=== PATIENT | female | born 1965 | race Caucasian/White ===

== ENCOUNTER → 2020-06-14 10:23 | Outpatient (POV) | payer BC, SELFPAY | PROVIDERS: Visit Provider Dermatology | DX: Z00.00 Encounter for general adult medical examination without abnormal findings (principal) ==

== ENCOUNTER → 2020-09-22 13:51 | Outpatient (CLI) | payer BC, SELFPAY ==
--- NOTE | 2020-09-22 13:51 | US_ITS ---
PROCEDURE: US TRANSVAGINAL CLINICAL INDICATION: pelvic pain COMPARISON: No exams were available for comparison FINDINGS: UTERUS: 10cm x 5cmx 5cm with a combined endometrial thickness of 16.6mm LEFT OVARY: [id number] with a volume of 4.2ml. RIGHT OVARY: [id number] with a volume of 7.4ml. There is a 2 cm simple appearing right ovarian cyst. There are multiple nabothian cysts. Largest nabothian cyst measures 1.7 cm. The endometrium is thickened at 17 mm. No cul-de-sac fluid IMPRESSION: Slightly bulky uterus with thickened endometrium and 2 cm simple appearing right ovarian cyst Dictated by: Mikey Huggins MD 09/23/2020 11:55 Mikey Huggins MD in OV 09/23/2020 11:55
== END ==
PROVIDERS: PCP Emergency Medicine; Visit Provider Obstetrics & Gynecology
DX: R10.2 Pelvic and perineal pain (principal)
CPT/HCPCS: 76830

== ENCOUNTER 2021-08-21 13:19 | Emergency (ER) | payer BC, SELFPAY ==
[2021-08-21 13:25] VITALS: BP 127/84; PULSE 73; RESP 18; O2SAT 96; BMI 36.3
--- NOTE | 2021-08-21 13:42 | HMH.EDFALL ---
ED Disposition Clinical Impression: Abrasion Contusion of face Qualifiers: Encounter type: initial encounter Qualified Code(s): S00.83XA - Contusion of other part of head, initial encounter Disposition: Home, Self-Care Condition on Discharge: Fair Additional Instructions: Echo [id number] Tylenol as needed for your pain. Follow-up with your primary care doctor in about 3 days to have your wounds checked. Return to the emergency department immediately if you feel worse in any way. Your CAT scan today did not show any acute injuries. Referrals: Leroy Salinas MD [Primary Care Provider] - - Critical Care Critical Care Time: No Attestation: On 08/21/21, the high probability of a clinically significant, sudden or life threatening deterioration of the following system(s) required my full and direct attention, intervention and personal management. The time I documented below is in addition to time spent performing reported procedures but includes the following listed in this critical care notation. Medical Decision Making - Josh Inquiry Pt receiving controlled substance: No Vital Signs: 08/21/21 13:25 08/21/21 14:01 Pulse Rate 58 L Pulse Rate [Brachial] 73 Respiratory Rate 18 18 Blood Pressure 106/60 L Blood Pressure [Right Arm] 127/84 Blood Pressure Mean [Right Arm] 98 Blood Pressure Source Automatic Cuff Blood Pressure Source [Right Arm] Automatic Cuff Blood Pressure Position Sitting 02 Sat by Pulse Oximetry 96 94 L Oxygen Delivery Method Room Air Room Air Orders (Tests/Meds): ED MEDICATIONS Discontinued Medications Generic Name Dose Route Start Last Admin Trade Name Freq PRN Reason Stop Dose Admin Tetanus/Reduced Diphtheria/Acell Pertussis 0.5 ml 08/21/21 13:44 08/21/21 14:17 Tet/Diphth/Pert-Adult 0.5ml Syringe IM 08/21/21 13:45 0.5 ml .ONCE ONE Administration - CT Data CT Scan: Head Time Received: 14:[address] Reviewed: Yes: I have reviewed the patient's CT results Preliminary Findings: Normal/NAD Fall HPI - General Chief Complaint: Fall Stated Complaint: fall Time Seen by Provider: 08/21/21 13:42 Mode of Arrival: EMS Limitations: aphasia Description of Symptoms (Recalled from ER Triage Doc. by RN): PT BROUGHT IN BY EMS FOR A FALL WHILE AT ASSISTED LIVING HOME. PT REPORTS TRIPPING WHILE GETTING OUT OF LAWN CHAIR. HAS RIGHT SIDED DEFECIT AND UNABLE TO CATCH HERSELF. ABRASION TO CHIN, LEFT CHEEK, LEFT SHOULDER AND LEFT KNEE. PT DENIES PAIN, NO LOC, DID NOT HIT HER HEAD - History of Present Illness HPI Narrative: The patient fell after having stumbled over a lawn chair. She sustained an injury to her left shoulder and face. She denies having lost consciousness. - Related Data Home Medications Medication Instructions Recorded Confirmed acetaminophen 500 mg capsule 500 mg PO Q6H PRN 09/02/20 01/04/21 amlodipine 10 mg tablet 10 mg PO HS tab 09/02/20 01/04/21 atorvastatin 10 mg tablet 10 mg PO DAILY 09/02/20 01/04/21 citalopram 20 mg tablet 20 mg PO DAILY 09/02/20 01/04/21 clobetasol 0.05 % topical ointment 1 applic TOPICAL BID 09/02/20 01/04/21 cyanocobalamin (vitamin B-12) 1,000 mcg PO DAILY 09/02/20 01/04/21 1,000 mcg capsule donepezil 5 mg tablet 5 mg PO HS 09/02/20 01/04/21 fenofibrate 54 mg tablet 54 mg PO DAILY 09/02/20 01/04/21 hydroxyzine HCl 25 mg tablet 25 mg PO BID PRN 09/02/20 01/04/21 lisinopril 40 mg tablet 40 mg PO DAILY 09/02/20 01/04/21 loratadine 10 mg tablet 10 mg PO DAILY 09/02/20 01/04/21 mirtazapine 15 mg tablet 15 mg PO HS 09/02/20 01/04/21 omega-3 fatty acids 1,000 mg 1,000 mg PO BID 09/02/20 01/04/21 capsule oxcarbazepine 600 mg tablet 600 mg PO BID 09/02/20 01/04/21 Previous Rx's Medication Instructions Recorded medroxyprogesterone 10 mg tablet See Rx Instructions .ROUTE 10/28/20 .COMPLEX #40 tab gabapentin 300 mg capsule 300 mg PO TID #90 cap 03/15/21 Allergies Allergy/AdvReac Type Severity Reacti
--- NOTE | 2021-08-21 13:44 | CT_ITS ---
PROCEDURE INFORMATION: Exam: CT Head Without Contrast Exam date and time: 08/21/2021 1:51 PM Age: 56 years old Clinical indication: Injury or trauma; Fall; Blunt trauma (contusions or hematomas); Consciousness not specified; Injury date: 08/21/21; Prior surgery; Surgery date: 6+ months; Surgery type: 13 years ago; Additional info: Chi-- previous traumatic brain injury -- this fall she has abrasions on chin and forehead TECHNIQUE: Imaging protocol: Computed tomography of the head without contrast. Radiation optimization: All CT scans at this facility use at least one of these dose optimization techniques: automated exposure control; mA and/or kV adjustment per patient size (includes targeted exams where dose is matched to clinical indication); or iterative reconstruction. COMPARISON: No relevant prior studies available. FINDINGS: Brain: Periventricular and subcortical white matter areas of hypoattenuation, likely chronic small vessel ischemic change, demyelination, or gliosis. Left frontotemporal encephalomalacia. Minimal encephalomalacia within the right frontal lobe. No intracranial mass, acute hemorrhage, or acute infarction. Cerebral ventricles: No ventriculomegaly. Paranasal sinuses: Visualized sinuses are unremarkable. No fluid levels. Mastoid air cells: Fluid within the right mastoid air cells. Auditory system: Small amount of fluid within the right middle ear. Bones/joints: Changes of prior left frontal parietal craniectomy. Soft tissues: Unremarkable. IMPRESSION: No acute intracranial abnormality.
--- NOTE | 2021-08-21 13:55 | PC.NURSE ---
PT TO CT PER WHEELCHAIR
[2021-08-21 14:01] VITALS: BP 106/60; PULSE 58; RESP 18; O2SAT 94
[2021-08-21 14:30] VITALS: BP 123/65; PULSE 64; RESP 20; TEMP 36.7
--- NOTE | 2021-08-21 14:41 | PC.NURSE ---
contacted [facility], notified staff member pt is ready for d/c
== END 2021-08-21 14:30 | disposition home or self-care (01) ==
PROVIDERS: Emergency Provider Emergency Medicine; PCP Emergency Medicine
DX: S00.83XA Contusion of other part of head, initial encounter (principal); S00.81XA Abrasion of other part of head, initial encounter; S40.212A Abrasion of left shoulder, initial encounter; S80.212A Abrasion, left knee, initial encounter; W07.XXXA Fall from chair, initial encounter; Y92.099 Unspecified place in other non-institutional residence as the place of occurrence of the external cause; Z23 Encounter for immunization
CPT/HCPCS: 70450; 90471; 90715; 99284

== ENCOUNTER → 2021-10-31 12:11 | Outpatient (CLI) | payer BC, SELFPAY ==
[2021-10-31 13:33] LABS: Basophils # 0.1 K/mm3 (0-0.2); Basophils % 0.6 % (0.1-2.0); Eosinophils # 0.4 K/mm3 (0.0-0.4); Eosinophils % 5.2 % (0.1-12.0); Hematocrit 41.2 % (37.0-47.0); Hemoglobin 13.4 g/dL (12.2-16.2); Lymphocytes # 1.8 K/mm3 (0.7-4.5); Lymphocytes % 23.4 % (10-50); Mean Corpuscular HGB Conc 32.5 g/dL (31.8-35.4); Mean Corpuscular Hemoglobin 31.1 pg (27.0-31.2); Mean Corpuscular Volume 95.9 fl (81-99); Mean Platelet Volume 7.6 fl (7.4-10.4); Monocytes # 0.3 K/mm3 (0.1-1.0); Monocytes % 3.9 % (1.7-9.3); Neutrophils # 5.2 K/mm3 (1.8-7.8); Neutrophils % 66.8 % (37.0-80.0); Platelet Count 395 K/mm3 (142-424); Red Cell Distribution Width 13.3 % (11.5-17.5); White Blood Count 7.7 K/mm3 (4.8-10.8)
[2021-10-31 14:12] LABS: Alanine Aminotransferase 17 U/L (12-78); Albumin Level 4.1 g/dl (3.5-5.0); Albumin/Globulin Ratio 1.6 (1.1-1.8); Alkaline Phosphatase 87 U/L (38-126); Anion Gap 14.5 mEq/L (5-15); Aspartate Amino Transferase 22 U/L (14-36); Bilirubin,Total < 0.1 mg/dl (0.2-1.3); Blood Urea Nitrogen 12 mg/dl (7-17); Calcium 9.1 mg/dl (8.4-10.2); Carbon Dioxide 26 mmol/L (22.0-30.0); Chloride 99 mmol/L (98-107); Estimated Glomerular Filt Rate 65 ml/min (>60); GFR (African American) 79 ML/MIN (>60); Globulin 2.5 g/dL (1.3-3.2); Glucose 88 mg/dl (74-100); Potassium 4.5 mmoL/L (3.5-5.1); Sodium 135 mmol/L (136-145); Total Protein,Serum 6.6 g/dl (6.3-8.2)
== END ==
PROVIDERS: PCP Emergency Medicine; Visit Provider Obstetrics & Gynecology
DX: Z01.812 Encounter for preprocedural laboratory examination (principal); Z20.822 Contact with and (suspected) exposure to COVID-19; N93.9 Abnormal uterine and vaginal bleeding, unspecified
CPT/HCPCS: 36415; 80053; 85025; C9803; U0003; U0005

== ENCOUNTER 2021-11-02 05:56 | Day surgery (SDC) | payer BC, SELFPAY ==
[2021-11-02] VITALS (9 sets, daily range): BP systolic 138–160; BP diastolic 60–88; PULSE 57–68; RESP 16–18; TEMP 36.2–36.9; O2SAT 92–98; BMI 35.5
--- NOTE | 2021-11-02 09:17 | PC.NURSE ---
[id number]-detailed report called to ROLAND Dempsey [id number]-pt transported to post op via stretcher w/gopi rails up and left in care of ROLAND Dempsey with bed locked in lowest position, vss, pt stable
--- NOTE | 2021-11-02 11:01 | EXP.OP.NOTE ---
Date of procedure: 11/02/21 Pre-op Diagnosis:: 1. Dysfunctional uterine bleeding 2. Thickened endometrium Post-op Diagnosis:: Same Procedure performed:: Myosure D&C Hysteroscopy Surgeon:: Sary Hernandez MD CREDIT SUPPORT COUNSELOR:: Other Anesthesia: GETA Estimated blood loss (mL): 5 Operative findings:: thickened proliferative endometrial tissue no polyp or fibroid visualized Operative note:: The patient was taken to the OR and general anesthesia administered without difficulty. She was prepped/draped in lithotomy position. The cervix was dilated and hysteroscopic evaluation performed. Thickened, proliferative glandular tissue was observed throughout the cavity but no fibroids or polyps were visualized within the endometrial cavity. The Myosure was used to sample endometrial tissue throughout the cavity. Once this was completed, all instruments were removed from her uterus and vagina. She was taken out of lithotomy position, awakened from anesthesia and taken to the PACU in stable condition. All sponge, needle & instrument counts correct. EBL 5cc. Condition: stable Disposition: PACU Specimens:: endometrial curettings Complications:: none
--- NOTE | 2021-11-02 14:07 | P.PN_ITS ---
[facility] Medical History (Updated 11/02/21 @ 07:08 by Janine Quesada RN) Chronic pain Dementia Depression History of contracture of joint History of intracranial injury History of stroke Hx of cerebrovascular disorder Hyperlipidemia Hypertension Psoriasis Seizures TBI (traumatic brain injury) Surgical History (Updated 11/02/21 @ 06:45 by Janine Quesada RN) History of knee replacement History of surgery of head Family History (Updated 11/02/21 @ 06:49 by Janine Quesada RN) Other No significant family history Social History Smoking Status: Never smoker alcohol intake: never substance use type: denies use current occupational status: disabled Travel in the last 8 weeks: None [facility] Anesthesia Checklist Patient Identification Patient Identification: Arm Band Structural Data Planned Operative Procedure/s: D & C, Hysteroscopy, Myasure Consent for Planned Operative Procedure(s) Verified: Yes Verified Documents: Surgical Consent NPO Status Verified Time NPO: 00:00 Additional verifications Anesthesia Reactions: No Hx Blood Transfusions: No Blood Transfusion Reaction: No Cardiovascular Assessment Heart Sounds: S1 & S2 Airway Assessment C-Spine Mobility Assessed: Yes TMJ Mobility Assessed: Yes Dentition: Edentulous Neurological Assessment Level of Consciousness: Awake, Follows Commands and Disoriented Hx Seizures: Yes Numbness or tingling in extremities: No Anesthesia Plan Anesthesia Risk discussed: Yes Anesthesia Plan: Verified ASA Class: III Anesthesia Type: General Preoperative Comments Pre-Operative Comments: Right arm contractures, Hypertension, History of seizures, CVD, Anxiety, Difficult for patient to communicate.
--- NOTE | 2021-11-02 14:21 | EXP.ANES.I ---
[facility] Anesthesia Record Part I Anesthesia Record I Intake, IV Amount: 200 Estimated blood loss (mL): 0 Urine output (mL): 0 Blood Products used (#): none Blood Pressure: 159/88 SaO2: 92 Pulse Rate: 63 Respiratory Rate: 16 Temperature: 98.1 F Patient is:: Drowsy and Stable
--- NOTE | 2021-11-03 09:03 | P.PNANES_ITS ---
[facility] Anesthesia Record Part II Anesthesia Record Part II Discharge Time: 09:11 Destination: Surgical Day Care (OP Surgery) PACU nurse assessment reviewed?: Yes Patient Condition:: Good Anesthesia Complications:: None Swallowing reflex intact?: Yes Cyanosis?: No Blood Pressure: 143/60 Pulse Rate: 60 Temperature: 98.5 F Mental Status: Alert & Oriented Pain level:: 0 Nausea and/or vomitting:: None Intake, IV Amount: 0
[2021-11-03 09:04] VITALS: BP 143/60; PULSE 60; TEMP 36.9
== END 2021-11-02 09:50 | disposition home or self-care (01) ==
PROVIDERS: PCP Emergency Medicine; Visit Provider Obstetrics & Gynecology
PROC: (CPT 58558; principal; 2021-11-02 07:30)
DX: N93.8 Other specified abnormal uterine and vaginal bleeding (principal); R93.89 Abnormal findings on diagnostic imaging of other specified body structures; Z79.899 Other long term (current) drug therapy
CPT/HCPCS: 58558; J2405

== ENCOUNTER 2022-11-07 21:34 | Emergency (ER) | payer BC, SELFPAY ==
[2022-11-07] VITALS (7 sets, daily range): BP systolic 151–232; BP diastolic 64–91; PULSE 50–64; RESP 16–20; TEMP 36.4; O2SAT 96–98; BMI 35.6
--- NOTE | 2022-11-07 22:08 | XR_ITS ---
PROCEDURE INFORMATION: Exam: XR Right Ankle Exam date and time: 11/07/2022 10:27 PM Age: 57 years old Clinical indication: Injury or trauma; Fall; Blunt trauma; Ankle; Right; Injury date: 11-07-22 TECHNIQUE: Imaging protocol: Radiologic exam of the right ankle. Views: 3 or more views. COMPARISON: No relevant prior studies available. FINDINGS: Bones/joints: Fracture dislocation at the ankle. Displaced transverse fracture of the medial malleolus. Mildly displaced oblique fracture of the posterior malleolus. Comminuted oblique fracture of the distal fibular diaphysis. Lateral subluxation of the talus and distal fibula by approximately half the shaft width of the tibia. Soft tissues: Diffuse soft tissue swelling. IMPRESSION: Fracture dislocation at the ankle with medial and posterior malleolar fractures and a distal fibular diaphyseal fracture. Lateral subluxation of the talus and distal fibula by approximately half the shaft width of the tibia.
--- NOTE | 2022-11-07 22:08 | XR_ITS ---
PROCEDURE INFORMATION: Exam: XR Right Foot Exam date and time: 11/07/2022 10:27 PM Age: 57 years old Clinical indication: Injury or trauma; Fall; Blunt trauma; Foot; Right; Injury date: 11-07-22 TECHNIQUE: Imaging protocol: Radiologic exam of the right foot. Views: 3 or more views. COMPARISON: No relevant prior studies available. FINDINGS: Bones/joints: Fracture dislocation at the ankle. No fracture or dislocation in the foot. Hallux valgus with bunion formation at the medial head of the 1st metatarsal. New line ankle soft tissue swelling extends into the foot. Soft tissues: See Bones/joints finding. IMPRESSION: 1. No fracture in the foot. 2. Fracture dislocation at the ankle. 3. Hallux valgus.
--- NOTE | 2022-11-07 22:08 | XR_ITS ---
PROCEDURE INFORMATION: Exam: XR Right Tibia and Fibula Exam date and time: 11/07/2022 10:27 PM Age: 57 years old Clinical indication: Injury or trauma; Fall; Blunt trauma; Lower leg; Right; Injury date: 11-07-22 TECHNIQUE: Imaging protocol: Radiologic exam of the right tibia and fibula. Views: 2 views. COMPARISON: No relevant prior studies available. FINDINGS: Bones/joints: Fracture dislocation at the ankle with a displaced transverse fracture of the medial malleolus and oblique fracture of the posterior malleolus. Comminuted oblique fracture of the distal fibular diaphysis. The talus and distal fibula are shifted laterally approximately half the shaft width of the tibia. No other fracture. Soft tissues: Ankle soft tissue swelling. IMPRESSION: Fracture/dislocation at the ankle involving the medial and posterior malleoli and distal fibular diaphysis with shift of the talus and distal fibula laterally a half shaft width of the tibia.
--- NOTE | 2022-11-07 22:28 | CT_ITS ---
PROCEDURE INFORMATION: Exam: CT Right Lower Extremity Without Contrast, Ankle Exam date and time: 11/07/2022 11:37 PM Age: 57 years old Clinical indication: Abnormal findings; Abnormal imaging study; XR ankle; Patient HX: Post reduction; Additional info: David TECHNIQUE: Imaging protocol: CT of the right lower extremity without contrast was performed. Exam focused on the ankle. 3D rendering (Not supervised by radiologist): MIP and/or 3D reconstructed images were created by the technologist. Radiation optimization: All CT scans at this facility use at least one of these dose optimization techniques: automated exposure control; mA and/or kV adjustment per patient size (includes targeted exams where dose is matched to clinical indication); or iterative reconstruction. REPORTING DATA: Count of CT and Cardiac NM exams in prior 12 months: This patient has received 0 known CTs and 0 known cardiac nuclear medicine studies in the 12 months prior to the current study. COMPARISON: CR XR ANKLE RT 2V 11/07/2022 11:35 PM FINDINGS: Bones/joints: Mildly displaced transverse fracture of the medial malleolus. Mildly displaced oblique fracture of the posterior malleolus. Mildly displaced and comminuted fracture of the distal fibular diaphysis. Small avulsion fracture at the posterior talus at the insertion site of the posterior talofibular ligament. Small avulsion fractures anteriorly within the anterior talofibular ligament and anterior distal tibiofibular ligament. The ankle mortise is in anatomic alignment. Soft tissues: Diffuse soft tissue swelling. IMPRESSION: 1. Mildly displaced transverse fracture of the medial malleolus. 2. Mildly displaced oblique fracture of the posterior malleolus. 3. Mildly displaced and comminuted fracture of the distal fibular diaphysis. 4. Small avulsion fractures in the expected locations of the anterior and posterior talofibular ligament and anterior distal tibiofibular ligament.
[2022-11-07 23:01] LABS: Alanine Aminotransferase 26 U/L (12-78); Albumin Level 4.4 g/dl (3.5-5.0); Albumin/Globulin Ratio 1.7 (1.1-1.8); Alkaline Phosphatase 79 U/L (38-126); Anion Gap 12.4 mEq/L (5-15); Aspartate Amino Transferase 30 U/L (14-36); Bilirubin,Total 0.3 mg/dl (0.2-1.3); Blood Urea Nitrogen 11 mg/dl (7-17); Calcium 8.9 mg/dl (8.4-10.2); Carbon Dioxide 26 mmol/L (22.0-30.0); Chloride 96 mmol/L (98-107); Creatinine Clearance Estimated 118 mL/min (50-200); Estimated Glomerular Filt Rate 65 ml/min (>60); GFR (African American) 79 ML/MIN (>60); Globulin 2.6 g/dL (1.3-3.2); Glucose 142 mg/dl (74-100); Potassium 3.4 mmoL/L (3.5-5.1); Sodium 131 mmol/L (136-145)
--- NOTE | 2022-11-07 23:11 | PC.NURSE ---
Called [facility] about an Ortho transfer. Will call back soon. YOSELIN
--- NOTE | 2022-11-07 23:17 | XR_ITS ---
PROCEDURE INFORMATION: Exam: XR Right Ankle Exam date and time: 11/07/2022 11:35 PM Age: 57 years old Clinical indication: Abnormal findings and screening exam; Abnormal imaging study; XR ankle; Post reduction TECHNIQUE: Imaging protocol: Radiologic exam of the right ankle. Views: 1 or 2 views. COMPARISON: CR XR ANKLE RT MIN 3V 11/07/2022 10:27 PM FINDINGS: Tubes, catheters and devices: Overlying splint in place. Bones/joints: Status post reduction with near anatomic alignment of the distal fibular and tibial fractures and anatomic alignment of the ankle. Soft tissues: Diffuse soft tissue swelling. IMPRESSION: Status post reduction with near anatomic alignment of the distal fibular and tibial fractures and anatomic alignment of the ankle.
--- NOTE | 2022-11-07 23:24 | P.PCN_ITS ---
[facility] Procedure Note Date: 11/07/22 Time: 23:10 Procedure Note:: 57-year-old female presents with mechanical fall and comminuted displaced right pilon fracture. Patient has difficulty communicating secondary to prior stroke. Patient is agreeable to sedation. Emergency consent was utilized given limb threatening injury. Procedure: Procedural sedation for fracture/dislocation reduction IV access was obtained. 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 Airway adjuncts available in room. Preoxygenated with 2 L nasal cannula. IV ketamine total of 40 mg was administered with appropriate sedation achieved. Procedure lasted 10 minutes. During procedure patient patient had no adverse events, required no interventions. I was continuously present at bedside during the procedure. Patient was reassessed after procedure, returned to baseline mental status. Please see separately documented note for details of reduction and splinting.
--- NOTE | 2022-11-07 23:28 | HMH.EDGENADL ---
Discharge Plan Disposition Patient Disposition: Xfer Short-Term Hosp Prescriptions Prescriptions: No Action amlodipine 10 mg tablet 10 mg PO HS atorvastatin 10 mg tablet 10 mg PO DAILY citalopram 20 mg tablet 20 mg PO DAILY clobetasol 0.05 % ointment 1 applic TOPICAL BID donepezil 5 mg tablet 5 mg PO HS fenofibrate 54 mg tablet 54 mg PO DAILY omega-3 fatty acids [Fish Oil Concentrate] 1,000 mg capsule 1,000 mg PO BID hydroxyzine HCl 25 mg tablet 25 mg PO BID PRN (Reason: HTN) Rx Instructions: take 1/2 tablet po 2 twice a day lisinopril 40 mg tablet 40 mg PO DAILY loratadine 10 mg tablet 10 mg PO DAILY mirtazapine 15 mg tablet 15 mg PO HS oxcarbazepine 600 mg tablet 600 mg PO BID cyanocobalamin (vitamin B-12) 1,000 mcg capsule 1,000 mcg PO DAILY acetaminophen 500 mg capsule 500 mg PO Q6H PRN (Reason: Pain) gabapentin 300 mg capsule 300 mg PO TID Qty: 90 5RF cholecalciferol (vitamin D3) [Vitamin D3] 25 mcg (1,000 unit) Tablet 25 mcg PO DAILY medroxyprogesterone [Provera] 10 mg tablet 10 mg PO .2 tabs daily Referrals Follow up/Referrals: Leroy Salinas MD [Primary Care Provider] - See instructions Clinical Impressions Clinical Impression: Displaced pilon fracture of right tibia Qualifiers: Encounter type: initial encounter Fracture type: closed Qualified Code(s): S82.871A - Displaced pilon fracture of right tibia, initial encounter for closed fracture Fracture of distal end of fibula Qualifiers: Encounter type: initial encounter Fracture type: closed Fracture morphology: other fracture Laterality: right Qualified Code(s): S82.831A - Other fracture of upper and lower end of right fibula, initial encounter for closed fracture Dislocation of distal end of right tibia Qualifiers: Encounter type: initial encounter Qualified Code(s): S93.04XA - Dislocation of right ankle joint, initial encounter Stand Alone Forms Stand Alone Forms: Transfer Record - ED Discharge ED Provider: Frederick Britt General Adult HPI <Frederick Britt MD - Last Filed: 11/07/22 23:40> General Chief complaint: Fall Stated complaint: fall Time Seen by Provider: 09/20/23 21:35 Mode of Arrival: EMS Source of Information: Patient and EMS Limitations: Physical Limitations Description of Symptoms (Recalled from ER Triage Doc. by RN): Patient fell at detention. No LOC, and only complaint is right ankle pain. History of Present Illness HPI narrative: 57-year-old female history of hypertension, hyperlipidemia, CVA presenting with right lower extremity fracture. Patient tripped at home. EMS was called. Little history available given patient largely nonverbal. Answering with yes and no's. Related Data Home Medications Medication Instructions Recorded Confirmed acetaminophen 500 mg capsule 500 mg PO Q6H PRN Pain 09/02/20 11/02/21 amlodipine 10 mg tablet 10 mg PO HS HTN 09/02/20 11/02/21 atorvastatin 10 mg tablet 10 mg PO DAILY Cholesterol 09/02/20 11/02/21 citalopram 20 mg tablet 20 mg PO DAILY Depression 09/02/20 11/02/21 clobetasol 0.05 % topical ointment 1 applic topical BID psoriasis 09/02/20 11/02/21 cyanocobalamin (vitamin B-12) 1,000 mcg PO DAILY Supplement 09/02/20 11/02/21 1,000 mcg capsule donepezil 5 mg tablet 5 mg PO HS alzheimers 09/02/20 11/02/21 fenofibrate 54 mg tablet 54 mg PO DAILY Cholesterol 09/02/20 11/02/21 hydroxyzine HCl 25 mg tablet 25 mg PO BID PRN HTN 09/02/20 11/02/21 lisinopril 40 mg tablet 40 mg PO DAILY HTN 09/02/20 11/02/21 loratadine 10 mg tablet 10 mg PO DAILY allergies 09/02/20 11/02/21 mirtazapine 15 mg tablet 15 mg PO HS Depression 09/02/20 11/02/21 omega-3 fatty acids 1,000 mg 1,000 mg PO BID Supplement 09/02/20 11/02/21 capsule (Fish Oil Concentrate) oxcarbazepine 600 mg tablet 600 mg PO BID seizures 09/02/20 11/02/21 cholecalciferol (vitamin D3) 25 25 mcg PO DAILY Supplement 11/02
[2022-11-07 23:30] LABS: Basophils # 0.1 K/mm3 (0-0.2); Eosinophils # 0.4 K/mm3 (0.0-0.4); Eosinophils % 5.7 % (0.1-12.0); Hematocrit 40.9 % (37.0-47.0); Hemoglobin 13.6 g/dL (12.2-16.2); Lymphocytes # 2.2 K/mm3 (0.7-4.5); Lymphocytes % 30.8 % (10-50); Mean Corpuscular HGB Conc 33.2 g/dL (31.8-35.4); Mean Corpuscular Hemoglobin 30.2 pg (27.0-31.2); Mean Corpuscular Volume 90.9 fl (81-99); Mean Platelet Volume 7.2 fl (7.4-10.4); Monocytes # 0.5 K/mm3 (0.1-1.0); Monocytes % 6.8 % (1.7-9.3); Neutrophils % 55.7 % (37.0-80.0); Platelet Count 329 K/mm3 (142-424); Red Cell Distribution Width 13.3 % (11.5-17.5); White Blood Count 7.3 K/mm3 (4.8-10.8)
[2022-11-07 23:38] LABS: Activated Partial Thrombo Time 29.9 seconds (22.8-30.6); INR 1.03 (0.9-1.1); Prothrombin Time 11.1 seconds (10.1-12.5)
--- NOTE | 2022-11-07 23:56 | PC.NURSE ---
EMS notified of need for transport to [facility]
--- NOTE | 2022-11-07 23:56 | PC.NURSE ---
Lolita notified that patient is being transferred to [facility]
[2022-11-08 00:24] VITALS: BP 133/77; PULSE 52; RESP 15; TEMP 36.7; O2SAT 98
--- NOTE | 2022-11-08 01:02 | PC.NURSE ---
spoke with [facility] sales representative livestock, diagnosis for transfer given. will follow up in a.m. on dispo from [facility].
== END 2022-11-08 00:24 | disposition short-term general hospital (02) ==
PROVIDERS: Emergency Provider Emergency Medicine; PCP Emergency Medicine
DX: S82.871A Displaced pilon fracture of right tibia, initial encounter for closed fracture (principal); S82.831A Other fracture of upper and lower end of right fibula, initial encounter for closed fracture; S93.04XA Dislocation of right ankle joint, initial encounter; I10 Essential (primary) hypertension; E78.5 Hyperlipidemia, unspecified; W01.0XXA Fall on same level from slipping, tripping and stumbling without subsequent striking against object, initial encounter; F03.90 Unspecified dementia, unspecified severity, without behavioral disturbance, psychotic disturbance, mood disturbance, and anxiety; F32.A Depression, unspecified; L40.9 Psoriasis, unspecified
CPT/HCPCS: 73590; 73600; 73610; 73630; 73700; 80053; 85025; 85610; 85730; 96361; 96374; 96375; 99285; J2405

== ENCOUNTER 2024-01-14 14:07 | Emergency (ER) | payer BC, SELFPAY ==
[2024-01-14] VITALS (8 sets, daily range): BP systolic 102–134; BP diastolic 52–65; PULSE 70–80; RESP 18; TEMP 36.8; O2SAT 64–98; BMI 29.9
--- NOTE | 2024-01-14 13:58 | ED_ITS ---
Discharge Plan Disposition Patient Disposition: Home, Self-Care Condition: Good Prescriptions Prescriptions: New ondansetron 4 mg tablet,disintegrating 4 mg PO Q6H PRN (Reason: nausea and vomiting) Qty: 10 0RF No Action amlodipine 10 mg tablet 10 mg PO HS atorvastatin 10 mg tablet 10 mg PO DAILY citalopram 20 mg tablet 20 mg PO DAILY clobetasol 0.05 % ointment 1 applic TOPICAL BID donepezil 5 mg tablet 5 mg PO HS fenofibrate 54 mg tablet 54 mg PO DAILY omega-3 fatty acids [Fish Oil Concentrate] 1,000 mg capsule 1,000 mg PO BID hydroxyzine HCl 25 mg tablet 25 mg PO BID PRN (Reason: HTN) Rx Instructions: take 1/2 tablet po 2 twice a day lisinopril 40 mg tablet 40 mg PO DAILY loratadine 10 mg tablet 10 mg PO DAILY mirtazapine 15 mg tablet 15 mg PO HS oxcarbazepine 600 mg tablet 600 mg PO BID cyanocobalamin (vitamin B-12) 1,000 mcg capsule 1,000 mcg PO DAILY acetaminophen 500 mg capsule 500 mg PO Q6H PRN (Reason: Pain) gabapentin 300 mg capsule 300 mg PO TID Qty: 90 5RF cholecalciferol (vitamin D3) [Vitamin D3] 25 mcg (1,000 unit) Tablet 25 mcg PO DAILY medroxyprogesterone [Provera] 10 mg tablet 10 mg PO .2 tabs daily Referrals Follow up/Referrals: Rodrick Wu APRN [Primary Care Provider] - See instructions Activity Restrictions/Add. Instructions Additional Instructions/Restrictions: Take Zofran as needed for the nausea vomiting. If symptoms persist or worsen follow-up with PCP or return to the ER as needed. Clinical Impressions Clinical Impression: Nausea & vomiting Qualifiers: Vomiting type: unspecified Qualified Code(s): R11.2 - Nausea with vomiting, unspecified Instructions Patient Instructions: Nausea and Vomiting-Adult Print Language Print Language: Arabic Discharge ED Provider: Raghav Dinh General Adult HPI <MORGAN Galloway - Last Filed: 01/14/24 20:09> General Chief complaint: Nausea/Vomiting/Diarrhea Stated complaint: N/V Time Seen by Provider: 01/14/24 14:10 History of Present Illness HPI narrative: Patient presents from her personal-prison for reported nausea vomiting and possibly diarrhea. Patient is nonverbal at baseline due to traumatic brain injury. Staff reported that patient had vomited but denies any complaints of chest pain shortness of breath fever chills hemoptysis hematochezia melena. Patient denies having loose stool. She denies abdominal pain. She does answer by shaking her head and understands people talking to her but has difficulty with talking herself. Related Data Home Medications ?Medication ?Instructions ?Recorded ?Confirmed acetaminophen 500 mg capsule 500 mg PO Q6H PRN Pain 09/02/20 11/02/21 amlodipine 10 mg tablet 10 mg PO HS HTN 09/02/20 11/02/21 atorvastatin 10 mg tablet 10 mg PO DAILY Cholesterol 09/02/20 11/02/21 citalopram 20 mg tablet 20 mg PO DAILY Depression 09/02/20 11/02/21 clobetasol 0.05 % topical ointment 1 applic topical BID psoriasis 09/02/20 11/02/21 cyanocobalamin (vitamin B-12) 1,000 mcg PO DAILY Supplement 09/02/20 11/02/21 1,000 mcg capsule donepezil 5 mg tablet 5 mg PO HS alzheimers 09/02/20 11/02/21 fenofibrate 54 mg tablet 54 mg PO DAILY Cholesterol 09/02/20 11/02/21 hydroxyzine HCl 25 mg tablet 25 mg PO BID PRN HTN 09/02/20 11/02/21 lisinopril 40 mg tablet 40 mg PO DAILY HTN 09/02/20 11/02/21 loratadine 10 mg tablet 10 mg PO DAILY allergies 09/02/20 11/02/21 mirtazapine 15 mg tablet 15 mg PO HS Depression 09/02/20 11/02/21 omega-3 fatty acids 1,000 mg 1,000 mg PO BID Supplement 09/02/20 11/02/21 capsule (Fish Oil Concentrate) oxcarbazepine 600 mg tablet 600 mg PO BID seizures 09/02/20 11/02/21 cholecalciferol (vitamin D3) 25 25 mcg PO DAILY Supplement 11/02/21 11/02/21 mcg (1,000 unit) tablet (Vitamin D3) medroxyprogesterone 10 mg tablet 10 mg PO .2 tabs daily hormones 11/02/21 11/02/21 (Provera) Previous Rx's ?Medication ?Instructions ?Recorded gabapentin 300 mg capsule 300 mg PO TID Pain #90 caps 09/10/22 ondansetron 4 mg disintegrating 4 mg PO Q6H PRN nausea and 01/14/24 tablet vomiting #10 tabs Allergies Allergy/AdvReac Type Severity Reaction Status Date / Time No Known Allergies Allergy Verified 11/07/22 21:47 PFSH <MORGAN Galloway - Last Filed: 01/14/24 20:09> [facility] Disclaimer: The information contained in this section may have been updated after the patient was seen, as this information can be updated by other users. Medical History (Updated 01/14/24 @ 16:57 by MORGAN Galloway) TBI (traumatic brain injury) History of contracture of joint Hx of cerebrovascular disorder History of intracranial injury Chronic pain Seizures Depression Dementia History of stroke Psoriasis Hyperlipidemia Hypertension Surgical History (Updated 11/02/21 @ 06:45 by Janine Quesada RN) History of surgery of head History of knee replacement Family History (Updated 11/02/21 @ 06:49 by Janine Quesada RN) Other No significant family history Social History (Updated 11/02/21 @ 14:21 by Curtis Velazquez CRNA) Smoking Status: Never smoker alcohol intake: never substance use type: denies use current occupational status: disabled Other Medical History Have you received the Flu Vaccine for this season: No Have you received the Pneumonia Vaccine: No <MORGAN Galloway - Last Filed: 01/14/24 20:09> ROS Obtained: Yes Systems reviewed as appropriate & no additional complaints except as documented Physical Exam <MORGAN Galloway - Last Filed: 01/14/24 20:09> General General appearance: alert and in no apparent distress Respiratory Respiratory exam: Present normal lung sounds bilaterally Cardiovascular Cardiovascular exam: Present regular rate Neurological Exam Neurological exam: Present alert and oriented X3 Medical Decision Making <MORGAN Galloway - Last Filed: 01/14/24 20:09> Medical Records Medical records reviewed: Yes I reviewed the patient's medical records. Screening: Per USPSTF and CDC recommendations, given the prevalence of disease in our region, it is our hospital?s policy to screen for HIV and viral Hepatitis for all patients aged 18 and over and those with ongoing risk factors. Josh Inquiry Pt receiving controlled substance: No Vital Signs: 01/14/24 14:03 01/14/24 14:07 01/14/24 14:15 Temperature 98.2 F Temperature Source Oral Pulse Rate 75 70 Pulse Rate [Right Radial] 70 Respiratory Rate 18 Blood Pressure 134/61 Blood Pressure [Right Arm] 118/56 L Blood Pressure Mean [Right Arm] 76 Blood Pressure Source 02 Sat by Pulse Oximetry 96 97 97 Oxygen Delivery Method Room Air 01/14/24 14:30 01/14/24 14:45 01/14/24 14:58 Temperature Temperature Source Pulse Rate 72 75 71 Pulse Rate [Right Radial] Respiratory Rate Blood Pressure 128/56 L 129/59 L Blood Pressure [Right Arm] Blood Pressure Mean [Right Arm] Blood Pressure Source 02 Sat by Pulse Oximetry 95 90 L 88 L Oxygen Delivery Method 01/14/24 15:03 01/14/24 17:00 Temperature 98.2 F Temperature Source Oral Pulse Rate 72 80 Pulse Rate [Right Radial] Respiratory Rate 18 Blood Pressure 121/65 102/52 L Blood Pressure [Right Arm] Blood Pressure Mean [Right Arm] Blood Pressure Source Automatic Cuff 02 Sat by Pulse Oximetry 98 Oxygen Delivery Method Room Air Lab Data Lab results reviewed: Yes I reviewed the patient's lab results. Lab Results 01/14/24 14:05: WBC 13.8 H, RBC 4.32, Hgb 13.6, Hct 39.0, MCV 90.2, MCH 31.4 H, MCHC 34.8, RDW 13.7, Plt Count 310, MPV 7.3 L, Neut % (Auto) 87.3 H, Lymph % (Auto) 7.0 L, [place] % (Auto) 5.0, Eos % (Auto) 0.4, Baso % (Auto) 0.3, Neut # (Auto) 12.1 H, Lymph # (Auto) 1.0, [place] # (Auto) 0.7, Eos # (Auto) 0.1, Baso # (Auto) 0.0, Total Counted 100, Neutrophils % (Manual) 91 H, Lymphocytes % (Manual) 6 L, Monocytes % (Manual) 3, Platelet Estimate Normal, Macrocytosis 1+, Stomatocytes 1+, Sodium 139, Potassium 3.6, Chloride 105, Carbon Dioxide 26, Anion Gap 11.6, BUN 9, Creatinine 0.90, Estimated Creat Clear 90, Estimated GFR 65, Est GFR ( Amer) 78, Glucose 119 H, Lactate 1.0, Calcium 9.3, M agnesium 1.4 L, Total Bilirubin 0.8, AST 24, ALT 18, Alkaline Phosphatase 92, Total Protein 7.5, Albumin 4.5, Globulin 3.0, Albumin/Globulin Ratio 1.5 01/14/24 14:30: SARS-CoV-2 (PCR) Not detected, Influenza A Untype (PCR) Not detected, Influenza Type B (PCR) Not detected 01/14/24 15:51: Urine Color Yellow, Urine Appearance Clear, Urine pH 7.0, Ur Specific [place] 1.010, Urine Protein Negative, Urine Glucose (UA) Negative, Urine Ketones Negative, Urine Blood Negative, Urine Nitrate Negative, Urine Bilirubin Negative, Urine Urobilinogen 0.2, Ur Leukocyte Esterase Negative, Urine RBC 3-5, Urine WBC 3-5, Ur Squamous Epith Cells 3-5, Urine Bacteria Trace 01/14/24 14:05 01/14/24 14:05 Orders (Tests/Meds): ED MEDICATIONS Discontinued Medications Generic Name Dose Route Start Last Admin Trade Name Freq PRN Reason Stop Dose Admin Acetaminophen 1,000 mg 01/14/24 14:05 01/14/24 14:25 Acetaminophen 1,000mg/100ml Vial IV 01/14/24 14:06 1,000 mg ONCE ONE Administration Sodium Chloride 1,000 mls @ 999 mls/hr 01/14/24 14:05 01/14/24 14:25 Sod Chlor 0.9% 1000ml Bag IV 01/14/24 15:05 999 mls/hr .Q1H1M ONE Administration Iopamidol 75 ml 01/14/24 14:56 01/14/24 14:57 Iopamidol-370 (76%);100ml Bottle IV 01/14/24 14:57 75 ml ONCE ONE Administration Ketorolac Tromethamine 15 mg 01/14/24 14:05 01/14/24 14:24 Ketorolac 30mg/Ml Vial IV 01/14/24 14:06 15 mg ONCE ONE Administration Promethazine HCl 12.5 mg 01/14/24 14:05 01/14/24 14:24 Promethazine Hcl 25mg/Ml 1ml Vial IV 01/14/24 14:06 12.5 mg ONCE ONE Administration Sodium Chloride 25 ml 01/14/24 14:05 01/14/24 14:25 Sodium Chloride 0.9% 25ml Bag IV 01/14/24 14:06 Not Given ONCE ONE Sodium Chloride 10 ml 01/14/24 14:56 01/14/24 14:57 Sodium Chloride 0.9% 10ml Syr (Rad Only) IV 01/14/24 14:57 10 ml ONCE ONE Administration ORDERS Category Date Time Status CT abdomen pelvis w con Stat Cat Scan 01/14/24 14:[address] chest w con Stat Cat Scan 01/14/24 14:42 Completed CBC w/Auto Diff [Complete Blood Count Auto Diff] Stat Lab 01/14/24 14:05 Completed CMP [Comprehensive Metabolic Panel] Stat Lab 01/14/24 14:05 Completed Lactic Acid Stat Lab 01/14/24 14:05 Completed Magnesium Stat Lab 01/14/24 14:05 Completed Rapid PCR Covid and Flu A/B Stat Lab 01/14/24 14:30 Completed UA [Urinalysis and Microscopic] Stat Lab 01/14/24 15:51 Completed Medical Decision Narrative: In summary patient is a 58-year-old female who presents to the emergency department for evaluation of nausea and vomiting. Patient is hemodynamically stable upon arrival, afebrile. Physical exam is remarkable for a nonverbal patient who however is awake alert and oriented person place and circumstance, normal breath sounds benign abdominal exam with no abdominal tenderness but hyperactive bowel sounds. Differential diagnosis includes gastroenteritis versus bowel obstruction versus urinary tract infection versus viral or bacterial upper respiratory tract infection etc. Initial workup will be conducted with hematologic labs urinalysis CT scan abdomen pelvis. Initial interventions include Tylenol bolus Zofran. Initial workup reviewed by me shows her white count is 13.8 with absolute neutrophil count of 12.1 and the remainder of her hematologic labs are nonactionable and urinalysis is bland. My informal interpretation of CT scan abdomen pelvis shows no acute processes prior to radiology read.. Upon repeat evaluation patient reports her nausea is better and has had no episodes in the emergency department and is tolerating p.o. intake.. Given this we have essentially ruled out any serious or life- threatening condition and as she is tolerating oral intake she is appropriate for discharge with a prescription for Zofran sent to her pharmacy and strict return precautions. <Raghav Dinh MD - Last Filed: 01/14/24 21:42> Vital Signs: 01/14/24 14:03 01/14/24 14:07 01/14/24 14:15 Temperature 98.2 F Temperature Source Oral Pulse Rate 75 70 Pulse Rate [Right Radial] 70 Respiratory Rate 18 Blood Pressure 134/61 Blood Pressure [Right Arm] 118/56 L Blood Pressure Mean [Right Arm] 76 Blood Pressure Source 02 Sat by Pulse Oximetry 96 97 97 Oxygen Delivery Method Room Air 01/14/24 14:30 01/14/24 14:45 01/14/24 14:58 Temperature Temperature Source Pulse Rate 72 75 71 Pulse Rate [Right Radial] Respiratory Rate Blood Pressure 128/56 L 129/59 L Blood Pressure [Right Arm] Blood Pressure Mean [Right Arm] Blood Pressure Source 02 Sat by Pulse Oximetry 95 90 L 88 L Oxygen Delivery Method 01/14/24 15:03 01/14/24 17:00 Temperature 98.2 F Temperature Source Oral Pulse Rate 72 80 Pulse Rate [Right Radial] Respiratory Rate 18 Blood Pressure 121/65 102/52 L Blood Pressure [Right Arm] Blood Pressure Mean [Right Arm] Blood Pressure Source Automatic Cuff 02 Sat by Pulse Oximetry 98 Oxygen Delivery Method Room Air Lab Data Lab Results 01/14/24 14:05: WBC 13.8 H, RBC 4.32, Hgb 13.6, Hct 39.0, MCV 90.2, MCH 31.4 H, MCHC 34.8, RDW 13.7, Plt Count 310, MPV 7.3 L, Neut % (Auto) 87.3 H, Lymph % (Auto) 7.0 L, [place] % (Auto) 5.0, Eos % (Auto) 0.4, Baso % (Auto) 0.3, Neut # (Auto) 12.1 H, Lymph # (Auto) 1.0, [place] # (Auto) 0.7, Eos # (Auto) 0.1, Baso # (Auto) 0.0, Total Counted 100, Neutrophils % (Manual) 91 H, Lymphocytes % (Manual) 6 L, Monocytes % (Manual) 3, Platelet Estimate Normal, Macrocytosis 1+, Stomatocytes 1+, Sodium 139, Potassium 3.6, Chloride 105, Carbon Dioxide 26, Anion Gap 11.6, BUN 9, Creatinine 0.90, Estimated Creat Clear 90, Estimated GFR 65, Est GFR ( Amer) 78, Glucose 119 H, Lactate 1.0, Calcium 9.3, M agnesium 1.4 L, Total Bilirubin 0.8, AST 24, ALT 18, Alkaline Phosphatase 92, Total Protein 7.5, Albumin 4.5, Globulin 3.0, Albumin/Globulin Ratio 1.5 01/14/24 14:30: SARS-CoV-2 (PCR) Not detected, Influenza A Untype (PCR) Not detected, Influenza Type B (PCR) Not detected 01/14/24 15:51: Urine Color Yellow, Urine Appearance Clear, Urine pH 7.0, Ur Specific [place] 1.010, Urine Protein Negative, Urine Glucose (UA) Negative, Urine Ketones Negative, Urine Blood Negative, Urine Nitrate Negative, Urine Bilirubin Negative, Urine Urobilinogen 0.2, Ur Leukocyte Esterase Negative, Urine RBC 3-5, Urine WBC 3-5, Ur Squamous Epith Cells 3-5, Urine Bacteria Trace Orders (Tests/Meds): ED MEDICATIONS Discontinued Medications Generic Name Dose Route Start Last Admin Trade Name Freq PRN Reason Stop Dose Admin Acetaminophen 1,000 mg 01/14/24 14:05 01/14/24 14:25 Acetaminophen 1,000mg/100ml Vial IV 01/14/24 14:06 1,000 mg ONCE ONE Administration Sodium Chloride 1,000 mls @ 999 mls/hr 01/14/24 14:05 01/14/24 14:25 Sod Chlor 0.9% 1000ml Bag IV 01/14/24 15:05 999 mls/hr .Q1H1M ONE Administration Iopamidol 75 ml 01/14/24 14:56 01/14/24 14:57 Iopamidol-370 (76%);100ml Bottle IV 01/14/24 14:57 75 ml ONCE ONE Administration Ketorolac Tromethamine 15 mg 01/14/24 14:05 01/14/24 14:24 Ketorolac 30mg/Ml Vial IV 01/14/24 14:06 15 mg ONCE ONE Administration Promethazine HCl 12.5 mg 01/14/24 14:05 01/14/24 14:24 Promethazine Hcl 25mg/Ml 1ml Vial IV 01/14/24 14:06 12.5 mg ONCE ONE Administration Sodium Chloride 25 ml 01/14/24 14:05 01/14/24 14:25 Sodium Chloride 0.9% 25ml Bag IV 01/14/24 14:06 Not Given ONCE ONE Sodium Chloride 10 ml 01/14/24 14:56 01/14/24 14:57 Sodium Chloride 0.9% 10ml Syr (Rad Only) IV 01/14/24 14:57 10 ml ONCE ONE Administration ORDERS Category Date Time Status CT abdomen pelvis w con Stat Cat Scan 01/14/24 14:[address] chest w con Stat Cat Scan 01/14/24 14:42 Completed CBC w/Auto Diff [Complete Blood Count Auto Diff] Stat Lab 01/14/24 14:05 Completed CMP [Comprehensive Metabolic Panel] Stat Lab 01/14/24 14:05 Completed Lactic Acid Stat Lab 01/14/24 14:05 Completed Magnesium Stat Lab 01/14/24 14:05 Completed Rapid PCR Covid and Flu A/B Stat Lab 01/14/24 14:30 Completed UA [Urinalysis and Microscopic] Stat Lab 01/14/24 15:51 Completed Medical Decision Narrative: In summary patient is a 58-year-old female who presents to the emergency department for evaluation of nausea and vomiting. Patient is hemodynamically stable upon arrival, afebrile. Physical exam is remarkable for a nonverbal patient who however is awake alert and oriented person place and circumstance, normal breath sounds benign abdominal exam with no abdominal tenderness but hyperactive bowel sounds. Differential diagnosis includes gastroenteritis versus bowel obstruction versus urinary tract infection versus viral or bacterial upper respiratory tract infection etc. Initial workup will be conducted with hematologic labs urinalysis CT scan abdomen pelvis. Initial interventions include Tylenol bolus Zofran. Initial workup reviewed by me shows her white count is 13.8 with absolute neutrophil count of 12.1 and the remainder of her hematologic labs are nonactionable and urinalysis is bland. My informal interpretation of CT scan abdomen pelvis shows no acute processes prior to radiology read.. Upon repeat evaluation patient reports her nausea is better and has had no episodes in the emergency department and is tolerating p.o. intake.. Given this we have essentially ruled out any serious or life- threatening condition and as she is tolerating oral intake she is appropriate for discharge with a prescription for Zofran sent to her pharmacy and strict return precautions. I was consulted by the ALFREDO, and we discussed the complexity of the problems being addressed.I approved the treatment and management plan for this patient?s care in the Emergency Department, thus performing a substantive portion of the medical decision making.Signed, Raghav Dinh MD Critical Care <MORGAN Galloway - Last Filed: 01/14/24 20:09> Critical Care Time Critical Care Time: No
--- NOTE | 2024-01-14 14:05 | CT_ITS ---
FINAL REPORT TECHNIQUE: Thin section axial images are obtained through the abdomen and pelvis after intravenous contrast. Reconstruction images were obtained from the axial data. Exam was performed using dose reduction techniques. CLINICAL HISTORY: Nausea vomiting abdominal pain COMPARISON: None FINDINGS: LIVER: Homogeneous. No focal lesion. GALLBLADDER/BILIARY SYSTEM: Gallbladder is present. No gallstones. No biliary dilatation. SPLEEN: Unremarkable. PANCREAS: Unremarkable. ADRENALS: Unremarkable. KIDNEYS/URETERS/BLADDER: No hydronephrosis, renal mass, or renal stone. Unremarkable urinary bladder. GI TRACT: Small hiatal hernia. No small bowel obstruction or dilatation. Normal appendix. No acute colon abnormality. PELVIC ORGANS: Unremarkable for age. LYMPH NODES/RETROPERITONEUM/MESENTERY: No lymphadenopathy. No abdominal aortic aneurysm. ABDOMINAL WALL: The abdominal wall is intact. FREE FLUID: No ascites. BONES: No acute osseous abnormality. IMPRESSION: No acute abnormality in the abdomen or pelvis. Reviewed, Interpreted and Dictated by Lindsey Apodaca MD Transcribed by Tyra Phoenix Authenticated and . [facility]
[2024-01-14] MEDS: PROMETHAZINE HCL 25MG/ML 1ML VIAL 12.5 MG IV (14:24)
[2024-01-14] MEDS: KETOROLAC 30MG/ML VIAL 15 MG IV (14:24)
[2024-01-14] MEDS: 0.9 % SODIUM CHLORIDE 1000ML 1,000 ML 999 ML IV (14:25)
[2024-01-14] MEDS: ACETAMINOPHEN 1,000MG/100ML VIAL 1000 MG IV (14:25)
[2024-01-14 14:29] LABS: Basophils % 0.3 % (0.1-2.0); Eosinophils # 0.1 K/mm3 (0.0-0.4); Eosinophils % 0.4 % (0.1-12.0); Hemoglobin 13.6 g/dL (12.2-16.2); Mean Corpuscular HGB Conc 34.8 g/dL (31.8-35.4); Mean Corpuscular Hemoglobin 31.4 pg (27.0-31.2); Mean Corpuscular Volume 90.2 fl (81-99); Mean Platelet Volume 7.3 fl (7.4-10.4); Monocytes # 0.7 K/mm3 (0.1-1.0); Neutrophils # 12.1 K/mm3 (1.8-7.8); Neutrophils % 87.3 % (37.0-80.0); Platelet Count 310 K/mm3 (142-424); Red Blood Count 4.32 M/mm3 (4.20-5.40); Red Cell Distribution Width 13.7 % (11.5-17.5); White Blood Count 13.8 K/mm3 (4.8-10.8)
[2024-01-14 14:32] LABS: MANUAL DIFFERENTIAL MANUAL DIFFERENTIAL (MANUAL DIFF)
[2024-01-14 14:38] LABS: Coronavirus 19, PCR Not Detected (NotDetected); Influenza A, PCR Not Detected (NotDetected); Influenza B, PCR Not Detected (NotDetected)
[2024-01-14 14:41] LABS: Alanine Aminotransferase 18 U/L (12-78); Albumin Level 4.5 g/dl (3.5-5.0); Albumin/Globulin Ratio 1.5 (1.1-1.8); Alkaline Phosphatase 92 U/L (38-126); Anion Gap 11.6 mEq/L (5-15); Aspartate Amino Transferase 24 U/L (14-36); Bilirubin,Total 0.8 mg/dl (0.2-1.3); Blood Urea Nitrogen 9 mg/dl (7-17); Calcium 9.3 mg/dl (8.4-10.2); Carbon Dioxide 26 mmol/L (22.0-30.0); Chloride 105 mmol/L (98-107); Creatinine Clearance Estimated 90 mL/min (50-200); Estimated Glomerular Filt Rate 65 ml/min (>60); GFR (African American) 78 ML/MIN (>60); Glucose 119 mg/dl (74-100); Magnesium 1.4 mg/dl (1.6-2.3); Potassium 3.6 mmoL/L (3.5-5.1); Sodium 139 mmol/L (136-145); Total Protein,Serum 7.5 g/dl (6.3-8.2)
--- NOTE | 2024-01-14 14:42 | CT_ITS ---
FINAL REPORT TECHNIQUE: Thin section axial images were obtained from the thoracic inlet through the upper abdomen after intravenous contrast injection. Reconstruction images were obtained from the axial data. Exam was performed using dose reduction technique. CLINICAL HISTORY: Nausea vomiting diarrhea abdominal pain COMPARISON: None FINDINGS: There is no mediastinal, hilar, or axillary lymphadenopathy. There is no pleural or pericardial effusion. The heart is mildly enlarged. There are no suspicious nodules or masses. No areas of consolidation. No acute osseous abnormality. IMPRESSION: No acute intrathoracic abnormality. Mild cardiomegaly. Reviewed, Interpreted and Dictated by Lindsey Apodaca MD Transcribed by Tyra Phoenix Authenticated and [facility]
[2024-01-14] MEDS: SODIUM CHLORIDE 0.9% 10ML SYR (RAD ONLY) 10 ML IV (14:57)
[2024-01-14] MEDS: IOPAMIDOL-370 (76%);100ML BOTTLE 75 ML IV (14:57)
[2024-01-14 15:11] LABS: Lymphocytes % 6 % (10-50); Monocytes % 3 % (2-9); Neutrophils % 91 % (42-76); Total Cells Counted 100
[2024-01-14 15:12] LABS: Macrocytosis 1+; Platelet Estimate Normal; Stomatocytes 1+
[2024-01-14 15:54] LABS: Microscopic, Urine URINE MICROSCOPIC (MICROSCOPIC)
[2024-01-14 15:55] LABS: Appearance,Urine CLEAR (Clear); Bilirubin,Urine Negative (Negative); Blood, Urine Negative (Negative); Color,Urine YELLOW (Yellow); Glucose,Urine (UA) Negative (Negative); Ketones,Urine Negative (Negative); Leukocyte Esterase,Urine Negative (Negative); Nitrate,Urine Negative (Negative); Protein,Urine Negative (Negative); Urobilinogen,Urine 0.2 EU/dl (0.2)
[2024-01-14 16:05] LABS: Bacteria,Urine Trace /lpf
--- NOTE | 2024-01-14 17:25 | PC.NURSE ---
Called [facility] to let them know that pt is ready for d/c. Updated them and pt on POC and d/c information as well as new prescription for zofran
== END 2024-01-14 17:40 | disposition home or self-care (01) ==
PROVIDERS: Physician Assistant; Emergency Provider Emergency Medicine; PCP Nurse Practitioner Acute Care
DX: R11.2 Nausea with vomiting, unspecified (principal); R19.7 Diarrhea, unspecified
CPT/HCPCS: 71260; 74177; 80053; 81001; 83605; 83735; 85007; 85025; 85027; 87636; 96361; 96374; 96375; 99285; J0131; J1885; J2550; J7030; Q9967

== ENCOUNTER 2024-10-18 13:52 | Emergency (ER) | payer MEDICAID, SELFPAY ==
[2024-10-18 13:54] VITALS: BP 141/53; PULSE 63; RESP 16; TEMP 36.5; O2SAT 99; BMI 34.9
--- OUTSIDE RECORDS SUMMARY | 2024-10-18 13:56 | XMS_ITS | Clinical Summary ---
Author Organization [facility] Address [address] [place] [address] Phone Care Team Providers Care Perinatal Coordinator Name Role Phone Unavailable Primary Care Provider Unavailabl e Allergies No known active allergies Medications * This document contains information received from the source organization and may not represent a complete record from that organization. amLODIPine (NORVASC) 10 mg Oral Tablet Take 10 mg by mouth daily. hs Active atorvastatin (LIPITOR) 10 mg Oral Tablet Take 10 mg by mouth daily. Active citalopram (CELEXA) 20 mg Oral Tablet Take 20 mg by mouth daily. Active donepeziL (ARICEPT) 5 mg Oral Tablet Take 5 mg by mouth daily. hs Active fenofibrate (LOFIBRA) 54 mg Oral Tablet Take 54 mg by mouth daily. Active fluticasone propionate (FLONASE) 50 mcg/actuation Nasl [place], Suspension 2 Sprays by Nasal route daily. Active gabapentin (NEURONTIN) 300 mg Oral Capsule Take 300 mg by mouth 3 times daily. Active lisinopriL (PRINIVIL;ZESTRI L) 40 mg Oral Tablet Take 40 mg by mouth daily. Active loratadine (CLARITIN) 10 mg Oral Tablet Take 10 mg by mouth daily. Active aspirin 81 mg Oral Tablet, Chewable Take 81 mg by mouth daily. 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 Resolved Problems Problem Noted Date Diagnosed Date Resolved Date History of traumatic brain injury 01/04/2020 08/05/2023 Medication monitoring encounter 01/04/2020 08/05/2023 Expressive aphasia 01/04/2020 Medical History Medical History Date Comments Dementia (HCC) Mood disturbance Seizures (HCC) Stroke (HCC) TBI (traumatic brain injury) (HCC) Depression Mood disturbance Hypertension 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 Social History Tobacco Use Types Packs/Day Years Used Date Smoking Tobacco: Never Smokeless Tobacco: Never Tobacco Cessation:Counseling Given: Not Answered Comments Unknown Sex and Gender Information Value Date Recorded Sex Assigned at Not on file Legal Sex Female 1:26 PM EST Gender Identity Not on file Sexual Orientation Not on file Obstetrics History Last Filed Vital Signs Vital Sign Reading Time Taken Comments Blood Pressure 122/60 06/12/2023 10:07 AM EDT Pulse 64 06/12/2023 10:07 AM EDT Temperature 36.8 C (98.2 F) 06/12/2023 10:07 AM EDT Respiratory Rate 18 06/12/2023 10:07 AM EDT Oxygen Saturation 95% 06/12/2023 10:07 AM EDT Inhaled Oxygen Concentration - - Weight 68 kg (150 lb) 06/04/2023 3:51 PM EDT Height 157.5 cm (5' 2 ) 06/04/2023 3:51 PM EDT Body Mass Index 27.44 06/04/2023 3:51 PM EDT Plan of Treatment Health Maintenance Due Date Last Done Comments Annual Wellness Exam 1970 Hepatitis B Vaccine (1 of 3 - 19+ 3-dose series) 1986 Cervical Cancer Screening 02/03/1988 Pap Smear 02/03/1988 HPV/Pap Cotest 1997 Breast Cancer Screening 2007 Cologuard 02/03/2012 Colon Cancer Screening 02/03/2012 Colonoscopy 02/03/2012 FIT 02/03/2012 Sigmoidoscopy 02/03/2012 Virtual Colonography 02/03/2012 Pneumococcal Vaccine 50+ (1 of 1 - PCV) 2017 Zoster (1 of 2) 2017 COVID-19 Vaccine ( - season) 2023 12/06/2021, 12/19/2020, 03/19/2020, Additional history exists Influenza Vaccine (#1) 2024 12/21/2019 DTaP/TDaP/Td (2 - Td or Tdap) 08/22/2031 08/21/2021 Meningococcal B Vaccine Aged Out No l onger eligible based on patient's age to complete this topic Insurance
--- NOTE | 2024-10-18 14:01 | [facility].EDGENADL ---
Discharge Plan Disposition Patient Disposition: Home, Self-Care Condition: Good Prescriptions Prescriptions: No Action amlodipine 10 mg tablet 10 mg PO HS atorvastatin 10 mg tablet 10 mg PO DAILY citalopram 20 mg tablet 20 mg PO DAILY clobetasol 0.05 % ointment 1 applic TOPICAL BID donepezil 5 mg tablet 5 mg PO HS fenofibrate 54 mg tablet 54 mg PO DAILY omega-3 fatty acids [Fish Oil Concentrate] 1,000 mg capsule 1,000 mg PO BID hydroxyzine HCl 25 mg tablet 25 mg PO BID PRN (Reason: HTN) Rx Instructions: take 1/2 tablet po 2 twice a day lisinopril 40 mg tablet 40 mg PO DAILY loratadine 10 mg tablet 10 mg PO DAILY mirtazapine 15 mg tablet 15 mg PO HS oxcarbazepine 600 mg tablet 600 mg PO BID cyanocobalamin (vitamin B-12) 1,000 mcg capsule 1,000 mcg PO DAILY acetaminophen 500 mg capsule 500 mg PO Q6H PRN (Reason: Pain) gabapentin 300 mg capsule 300 mg PO TID Qty: 90 5RF cholecalciferol (vitamin D3) [Vitamin D3] 25 mcg (1,000 unit) Tablet 25 mcg PO DAILY medroxyprogesterone [Provera] 10 mg tablet 10 mg PO .2 tabs daily ondansetron 4 mg tablet,disintegrating 4 mg PO Q6H PRN (Reason: nausea and vomiting) Qty: 10 0RF Referrals Follow up/Referrals: Provider,Referral, MD [Primary Care Provider, Medical] - See instructions Activity Restrictions/Add. Instructions Additional Instructions/Restrictions: Please return to the emergency department with any worsening signs or symptoms. Please follow-up with your family doctor in the upcoming days/weeks. Please take medication as prescribed. Clinical Impressions Clinical Impression: Fall, Abrasion Instructions Patient Instructions: DI for Abrasion Print Language Print Language: Upper Sorbian Discharge ED Provider: Luiza Iqbal General Adult HPI <MORGAN Izquierdo - Last Filed: 10/18/24 15:43> General Chief complaint: Fall Stated complaint: Fall Time Seen by Provider: 10/18/24 13:57 Mode of Arrival: EMS Source of Information: Patient, EMS and Medical Record Limitations: No Limitations History of Present Illness HPI narrative: 59-year-old female presents the emergency department via EMS for what sounds like a mechanical fall that was witnessed, patient has some aphasia baseline from previous CVA and left-sided craniotomy, upper extremity deficits on the right drawn up appearance, patient can answer yes or no questions, patient complains of right elbow pain, there is a small abrasion that is not of the patient's right elbow, describes it as a mechanical fall with the patient states that yes she tripped, admits to hitting the head, denies any neck pain, no fever chills chest pain shortness of breath, abdominal pain nausea vomiting, she did not have a presyncopal or syncopal event, has no other upper or lower extremity injury, no midthoracic back pain or lower back pain, based on the patient's past medical record patient has other past medical history consistent with dysfunctional uterine bleeding, hyperlipidemia, hypertension, anxiety, anticonvulsant therapy with oxcarbazepine. Initial triage vitals are unremarkable. Please note that above description of symptoms, in this electronic medical record under categorization of recalled from ER triage doctor by RN are reflective of an initial nursing assessment, however, is not reflective of my full history and physical exam that was personally taken and clarified. Consequentially, this preceding description of symptoms, which may include the patient's categorized chief complaint in the EMR, do not reflect my personal clinical impression, and the ultimate description of history of present illness and patient stated complaints should be deferred to this section of the note. Unless stated otherwise or congruent with this section of the note, additional signs, symptoms, or incongruence should be interpreted as inaccurate with my clinical impression. Onset (ago): minute(s) Related Data Home Medications ?Medication ?Instructions ?Recorded ?Confirmed acetaminophen 500 mg capsule 500 mg PO Q6H PRN Pain 09/02/20 11/02/21 amlodipine 10 mg tablet 10 mg PO HS HTN 09/02/20 11/02/21 atorvastatin 10 mg tablet 10 mg PO DAILY Cholesterol 09/02/20 11/02/21 citalopram 20 mg tablet 20 mg PO DAILY Depression 09/02/20 11/02/21 clobetasol 0.05 % topical ointment 1 applic topical BID psoriasis 09/02/20 11/02/21 cyanocobalamin (vitamin B-12) 1,000 mcg PO DAILY Supplement 09/02/20 11/02/21 1,000 mcg capsule donepezil 5 mg tablet 5 mg PO HS alzheimers 09/02/20 11/02/21 fenofibrate 54 mg tablet 54 mg PO DAILY Cholesterol 09/02/20 11/02/21 hydroxyzine HCl 25 mg tablet 25 mg PO BID PRN HTN 09/02/20 11/02/21 lisinopril 40 mg tablet 40 mg PO DAILY HTN 09/02/20 11/02/21 loratadine 10 mg tablet 10 mg PO DAILY allergies 09/02/20 11/02/21 mirtazapine 15 mg tablet 15 mg PO HS Depression 09/02/20 11/02/21 omega-3 fatty acids 1,000 mg 1,000 mg PO BID Supplement 09/02/20 11/02/21 capsule (Fish Oil Concentrate) oxcarbazepine 600 mg tablet 600 mg PO BID seizures 09/02/20 11/02/21 cholecalciferol (vitamin D3) 25 25 mcg PO DAILY Supplement 11/02/21 11/02/21 mcg (1,000 unit) tablet (Vitamin D3) medroxyprogesterone 10 mg tablet 10 mg PO .2 tabs daily hormones 11/02/21 11/02/21 (Provera) Previous Rx's ?Medication ?Instructions ?Recorded gabapentin 300 mg capsule 300 mg PO TID Pain #90 caps 09/10/22 ondansetron 4 mg disintegrating 4 mg PO Q6H PRN nausea and 01/14/24 tablet vomiting #10 tabs Allergies Allergy/AdvReac Type Severity Reaction Status Date / Time No Known Allergies Allergy Verified 11/07/22 21:47 [facility] <MORGAN Izquierdo - Last Filed: 10/18/24 15:43> [facility] Disclaimer: The information contained in this section may have been updated after the patient was seen, as this information can be updated by other users. Medical History (Updated 10/18/24 @ 15:43 by MORGAN Izquierdo) TBI (traumatic brain injury) History of contracture of joint Hx of cerebrovascular disorder History of intracranial injury Chronic pain Seizures Depression Dementia History of stroke Psoriasis Hyperlipidemia Hypertension Surgical History (Updated 11/02/21 @ 06:45 by Janine Quesada RN) History of surgery of head History of knee replacement Family History (Updated 11/02/21 @ 06:49 by Janine Quesada RN) Other No significant family history Social History (Updated 11/02/21 @ 14:21 by Curtis Velazquez CRNA) Smoking Status: Never smoker alcohol intake: never substance use type: denies use current occupational status: disabled Travel in the last 8 weeks?: None Have you lived/traveled outside [place] in past 30 days?: No Contact w/someone who lives/traveled outside US past 30 days?: No Exposure to someone with infectious disease in past 14 days?: No Do you have a fever (greater than 100.4 F or 38 C)?: No Have you tested positive for COVID-19?: No Exposed to someone with COVID-19 in past 14 days?: No Do you have a sore throat?: No Do you have a cough?: No Do you have any weakness?: No Do you have any diarrhea?: No Are you experiencing any unusual bleeding?: No Do you have any muscle aches/pain?: No Do you have any abdominal pain?: No Are you experiencing loss of taste or smell?: No Other Medical History Have you received the Flu Vaccine for this season: No Have you received the Pneumonia Vaccine: No <MORGAN Izquierdo - Last Filed: 10/18/24 15:43> ROS Obtained: Yes All systems reviewed & no additional complaints except as documented Physical Exam <MOGRAN Izquierdo - Last Filed: 10/18/24 15:43> General General appearance: alert and in no apparent distress Head Head exam: normocephalic and other (Obvious area of previous left-sided craniotomy with skull defect present) Eye Eye exam: Present PERRL and EOMI ENT ENT exam: Present mucous membranes moist Neck Neck exam: Present normal inspection Chest Chest inspection: Present normal inspection and symmetric chest wall rise Respiratory Respiratory exam: Present normal lung sounds bilaterally; Absent respiratory distress, wheezes or stridor Cardiovascular Cardiovascular exam: Present regular rate and normal rhythm Abdominal Exam Abdominal exam: Present soft; Absent tenderness, guarding or rebound Extremities Exam Extremities exam: Present tenderness and other (Mild pain palpation over the olecranon region, otherwise neurovascular intact, no pain palpation of the shoulder joint humerus region no pain palpation to the wrist or forearm. No obvious open fracture or deformity); Absent normal inspection Back Exam Back exam: Present full ROM and tenderness; Absent paraspinal tenderness or vertebral tenderness Neurological Exam Neurological exam: Present alert, oriented X3 and other (Drawn up appearance of the right upper extremity this appears to be the patient's baseline, patient is GCS of 14, inappropriate words but does answer yes or no when prompted, appears to be at neurological baseline according to EMS and half-way staff) Psychiatric Psychiatric exam: Present normal affect Skin Skin exam: Present warm, dry and other (Small less than 1 cm abrasion noted over the patient's olecranon region, otherwise neurovascular intact) Medical Decision Making <MORGAN Izquierdo - Last Filed: 10/18/24 15:43> Medical Records Medical records reviewed: Yes I reviewed the patient's medical records. Screening: Per USPSTF and CDC recommendations, given the prevalence of disease in our region, it is our hospital?s policy to screen for HIV and viral Hepatitis for all patients aged 18 and over and those with ongoing risk factors. Josh Inquiry Pt receiving controlled substance: No Josh was queried for this patient: No Vital Signs: 10/18/24 13:54 10/18/24 14:08 10/18/24 15:52 Temperature 97.7 F 98.2 F Temperature Source Oral Oral Pulse Rate 56 L Pulse Rate [Left Radial] 63 Respiratory Rate 16 18 Blood Pressure 132/54 L Blood Pressure [Right Arm] 141/53 H Blood Pressure Mean [Right Arm] 82 Blood Pressure Source Automatic Cuff Blood Pressure Source [Right Arm] Automatic Cuff Blood Pressure Position Sitting Blood Pressure Position [Right Arm] Sitting 02 Sat by Pulse Oximetry 99 99 Oxygen Delivery Method Room Air Room Air Room Air Orders (Tests/Meds): ORDERS Category Date Time Status CT cervical spine wo con Stat Cat Scan 10/18/24 14:[address] head/brain wo con Stat Cat Scan 10/18/24 14:06 Completed XR elbow RT min 3V Stat Exams 10/18/24 14:06 Completed Medical Decision Narrative: 59-year-old female presents to the emergency department for mechanical fall at the half-way facility, differential diagnose include but not limited to, soft tissue injury, abrasion, elbow sprain/strain, elbow fracture, closed head injury, acute SDH traumatic SAH, among others. I discussed this patient's case with attending physician Will obtain CT head without contrast, CT cervical spine without contrast and x-ray of the elbow for further evaluation/characterization. Reviewed the patient's CT head without contrast along the corresponding radiologic report no acute intracranial hemorrhage or mass effect I reviewed the patient's CT cervical spine without contrast on the corresponding radiologic report, no acute fracture or traumatic subluxation. I reviewed the patient's right elbow x-ray along the corresponding radiologic report, no acute findings. I discussed the results with the patient the bedside patient voiced understanding and agreement with the current treatment plan/discharge plan. Patient was given strict ED return precautions. Follow-up with other providers in the upcoming days/weeks. I was consulted by the ALFREDO, and we discussed the complexity of problems being addressed. I approved the treatment and management plan for this patient's care in the emergency department, thus performing a substantial portion of the medical decision making. Luiza Iqbal MD <Luiza Iqbal MD - Last Filed: 10/21/24 09:04> Vital Signs: 10/18/24 13:54 10/18/24 14:08 10/18/24 15:52 Temperature 97.7 F 98.2 F Temperature Source Oral Oral Pulse Rate 56 L Pulse Rate [Left Radial] 63 Respiratory Rate 16 18 Blood Pressure 132/54 L Blood Pressure [Right Arm] 141/53 H Blood Pressure Mean [Right Arm] 82 Blood Pressure Source Automatic Cuff Blood Pressure Source [Right Arm] Automatic Cuff Blood Pressure Position Sitting Blood Pressure Position [Right Arm] Sitting 02 Sat by Pulse Oximetry 99 99 Oxygen Delivery Method Room Air Room Air Room Air Orders (Tests/Meds): ORDERS Category Date Time Status CT cervical spine wo con Stat Cat Scan 10/18/24 14:[address] head/brain wo con Stat Cat Scan 10/18/24 14:06 Completed XR elbow RT min 3V Stat Exams 10/18/24 14:06 Completed Medical Decision Narrative: 59-year-old female presents to the emergency department for mechanical fall at the half-way facility, differential diagnose include but not limited to, soft tissue injury, abrasion, elbow sprain/strain, elbow fracture, closed head injury, acute SDH traumatic SAH, among others. I discussed this patient's case with attending physician Will obtain CT head without contrast, CT cervical spine without contrast and x-ray of the elbow for further evaluation/characterization. Reviewed the patient's CT head without contrast along the corresponding radiologic report no acute intracranial hemorrhage or mass effect I reviewed the patient's CT cervical spine without contrast on the corresponding radiologic report, no acute fracture or traumatic subluxation. I was consulted by the ALFREDO, and we discussed the complexity of problems being addressed. I approved the treatment and management plan for this patient's care in the emergency department, thus performing a substantial portion of the medical decision making. Luiza Iqbal MD Critical Care <MORGAN Izquierdo - Last Filed: 10/18/24 15:43> Critical Care Time Critical Care Time: No
--- NOTE | 2024-10-18 14:06 | CT_ITS ---
PROCEDURE INFORMATION: Exam: CT Head Without Contrast Exam date and time: 10/18/2024 2:48 PM Age: 59 years old Clinical indication: Fall, head trauma, prior crani TECHNIQUE: Imaging protocol: Computed tomography of the head without contrast. Radiation optimization: All CT scans at this facility use at least one of these dose optimization techniques: automated exposure control; mA and/or kV adjustment per patient size (includes targeted exams where dose is matched to clinical indication); or iterative reconstruction. COMPARISON: CT HEAD/BRAIN WO CON 08/21/2021 1:51 PM FINDINGS: Brain: Left digna-craniectomy. Left frontotemporal encephalomalacia. Small areas of encephalomalacia involving the right frontal lobe, right temporal lobe, and left parietal lobe. Age-related involutional changes and chronic microvascular ischemic disease. No evidence for acute transcortical infarct. No mass effect or midline shift. No extra-axial collection. No acute intracranial hemorrhage. Basal cisterns are patent. Cerebral ventricles: No ventriculomegaly. Paranasal sinuses: Visualized sinuses are unremarkable. No fluid levels. Mastoid air cells: Visualized mastoid air cells are well aerated. Bones: Unremarkable. No acute fracture. Soft tissues: Unremarkable. IMPRESSION: No acute intracranial hemorrhage or mass effect.
--- NOTE | 2024-10-18 14:06 | XR_ITS ---
PROCEDURE INFORMATION: Exam: XR Right Elbow Exam date and time: 10/18/2024 2:51 PM Age: 59 years old Clinical indication: Injury or trauma; Fall; Blunt trauma (contusions or hematomas); Elbow; Right; Additional info: Fall, right elbow pain TECHNIQUE: Imaging protocol: Radiologic exam of the right elbow. Views: 3 or more views. COMPARISON: No relevant prior studies available. FINDINGS: Bones/joints: Normal. Soft tissues: Normal. IMPRESSION: No acute findings.
[2024-10-18 14:08] VITALS: O2SAT 99
--- NOTE | 2024-10-18 14:08 | CT_ITS ---
PROCEDURE INFORMATION: Exam: CT Cervical Spine Without Contrast Exam date and time: 10/18/2024 2:51 PM Age: 59 years old Clinical indication: Injury or trauma; Fall; Blunt trauma TECHNIQUE: Imaging protocol: Computed tomography of the cervical spine without contrast. Radiation optimization: All CT scans at this facility use at least one of these dose optimization techniques: automated exposure control; mA and/or kV adjustment per patient size (includes targeted exams where dose is matched to clinical indication); or iterative reconstruction. COMPARISON: CT HEAD/BRAIN WO CON 10/18/2024 2:48 PM FINDINGS: Bones: No acute fracture or traumatic subluxation. No spondylolisthesis. The atlantooccipital and atlantoaxial articulations are intact. Occipital condyles are intact. Facet joint alignments are maintained. Age-related degenerative disc disease. Multilevel degenerative changes of the cervical spine. Lungs: Lung apices are normal. Soft tissues: No prevertebral soft tissue swelling. IMPRESSION: No acute fracture or traumatic subluxation.
--- NOTE | 2024-10-18 15:49 | PC.NURSE ---
ATTEMPTED TO CALL JADEN WITH NO ANSWER
[2024-10-18 15:52] VITALS: BP 132/54; PULSE 56; RESP 18; TEMP 36.8; O2SAT 100
--- NOTE | 2024-10-18 16:02 | PC.NURSE ---
ATTEMPTED TO CALL JADEN WITH NO ANSWER
== END 2024-10-18 16:20 | disposition home or self-care (01) ==
PROVIDERS: Emergency Provider Student in an Organized Health Care Education/Training Program
DX: S50.311A Abrasion of right elbow, initial encounter (principal); M25.521 Pain in right elbow; Z86.73 Personal history of transient ischemic attack (TIA), and cerebral infarction without residual deficits; W19.XXXA Unspecified fall, initial encounter
CPT/HCPCS: 70450; 72125; 73080; 99283; 99285

== ENCOUNTER 2024-11-15 07:58 | Emergency (ER) | payer MEDICAID, SELFPAY ==
[2024-11-15 08:01] VITALS: BP 133/68; PULSE 51; RESP 15; TEMP 36.7; O2SAT 98; BMI 29.1
--- NOTE | 2024-11-15 08:05 | XR_ITS ---
PROCEDURE INFORMATION: Exam: XR Left Hip Exam date and time: 11/15/2024 8:29 AM Age: 59 years old Clinical indication: Injury or trauma; Fall; Blunt trauma (contusions or hematomas); Left; Hip; Additional info: Fall/injury TECHNIQUE: Imaging protocol: Radiologic exam of the left hip. Views: 2 or 3 views hip with pelvis when performed. COMPARISON: CT ABDOMEN PELVIS W CON 01/14/2024 2:51 PM FINDINGS: Bones/joints: Mild degenerative changes in both hips. There is no evidence of acute fracture.There is no evidence of malalignment or dislocation. Soft tissues: Unremarkable. IMPRESSION: There is no evidence of acute fracture.There is no evidence of malalignment or dislocation.
--- NOTE | 2024-11-15 08:06 | HMH.EDGENADL ---
Discharge Plan Disposition Patient Disposition: Home, Self-Care Prescriptions Prescriptions: No Action amlodipine 10 mg tablet 10 mg PO HS atorvastatin 10 mg tablet 10 mg PO DAILY citalopram 20 mg tablet 20 mg PO DAILY clobetasol 0.05 % ointment 1 applic TOPICAL BID donepezil 5 mg tablet 5 mg PO HS fenofibrate 54 mg tablet 54 mg PO DAILY omega-3 fatty acids [Fish Oil Concentrate] 1,000 mg capsule 1,000 mg PO BID hydroxyzine HCl 25 mg tablet 25 mg PO BID PRN (Reason: HTN) Rx Instructions: take 1/2 tablet po 2 twice a day lisinopril 40 mg tablet 40 mg PO DAILY loratadine 10 mg tablet 10 mg PO DAILY mirtazapine 15 mg tablet 15 mg PO HS oxcarbazepine 600 mg tablet 600 mg PO BID cyanocobalamin (vitamin B-12) 1,000 mcg capsule 1,000 mcg PO DAILY acetaminophen 500 mg capsule 500 mg PO Q6H PRN (Reason: Pain) gabapentin 300 mg capsule 300 mg PO TID Qty: 90 5RF cholecalciferol (vitamin D3) [Vitamin D3] 25 mcg (1,000 unit) Tablet 25 mcg PO DAILY medroxyprogesterone [Provera] 10 mg tablet 10 mg PO .2 tabs daily ondansetron 4 mg tablet,disintegrating 4 mg PO Q6H PRN (Reason: nausea and vomiting) Qty: 10 0RF Activity Restrictions/Add. Instructions Additional Instructions/Restrictions: No evidence of an acute emergent medical condition identified patient able to ambulate in the emergency department please return with any concerns. Clinical Impressions Clinical Impression: Hip pain, left Print Language Print Language: Upper Sorbian Discharge ED Provider: Verna Hrenandez General Adult HPI General Chief complaint: PAIN Stated complaint: Back Pain Time Seen by Provider: 11/15/24 08:02 History of Present Illness HPI narrative: Patient is a 59-year-old [facility] resident with a history of stroke and chronic deficits include right sided contractions and difficulty speaking presents today with left hip pain. She had something called a [place] ball where it is possible she was dancing a lot patient also nods yes when asked if she fell. History is severely limited given patient's inability to speak articulately. She points to her left hip when asked where she is hurting. Related Data Home Medications ?Medication ?Instructions ?Recorded ?Confirmed acetaminophen 500 mg capsule 500 mg PO Q6H PRN Pain 09/02/20 11/02/21 amlodipine 10 mg tablet 10 mg PO HS HTN 09/02/20 11/02/21 atorvastatin 10 mg tablet 10 mg PO DAILY Cholesterol 09/02/20 11/02/21 citalopram 20 mg tablet 20 mg PO DAILY Depression 09/02/20 11/02/21 clobetasol 0.05 % topical ointment 1 applic topical BID psoriasis 09/02/20 11/02/21 cyanocobalamin (vitamin B-12) 1,000 mcg PO DAILY Supplement 09/02/20 11/02/21 1,000 mcg capsule donepezil 5 mg tablet 5 mg PO HS alzheimers 09/02/20 11/02/21 fenofibrate 54 mg tablet 54 mg PO DAILY Cholesterol 09/02/20 11/02/21 hydroxyzine HCl 25 mg tablet 25 mg PO BID PRN HTN 09/02/20 11/02/21 lisinopril 40 mg tablet 40 mg PO DAILY HTN 09/02/20 11/02/21 loratadine 10 mg tablet 10 mg PO DAILY allergies 09/02/20 11/02/21 mirtazapine 15 mg tablet 15 mg PO HS Depression 09/02/20 11/02/21 omega-3 fatty acids 1,000 mg 1,000 mg PO BID Supplement 09/02/20 11/02/21 capsule (Fish Oil Concentrate) oxcarbazepine 600 mg tablet 600 mg PO BID seizures 09/02/20 11/02/21 cholecalciferol (vitamin D3) 25 25 mcg PO DAILY Supplement 11/02/21 11/02/21 mcg (1,000 unit) tablet (Vitamin D3) medroxyprogesterone 10 mg tablet 10 mg PO .2 tabs daily hormones 11/02/21 11/02/21 (Provera) Previous Rx's ?Medication ?Instructions ?Recorded gabapentin 300 mg capsule 300 mg PO TID Pain #90 caps 09/10/22 ondansetron 4 mg disintegrating 4 mg PO Q6H PRN nausea and 01/14/24 tablet vomiting #10 tabs Allergies Allergy/AdvReac Type Severity Reaction Status Date / Time No Known Allergies Allergy Verified 11/07/22 21:47 [facility] Disclaimer: The information contained in this section may have been updated after the patient was seen, as this information can be updated by other users. Medical History (Updated 11/15/24 @ 08:09 by Verna Hernandez MD) TBI (traumatic brain injury) History of contracture of joint Hx of cerebrovascular disorder History of intracranial injury Chronic pain Seizures Depression Dementia History of stroke Psoriasis Hyperlipidemia Hypertension Surgical History (Updated 11/02/21 @ 06:45 by Janine Quesada RN) History of surgery of head History of knee replacement Family History (Updated 11/02/21 @ 06:49 by Janine Quesada RN) Other No significant family history Social History (Updated 11/02/21 @ 14:21 by Curtis Velazquez CRNA) Smoking Status: Never smoker alcohol intake: never substance use type: denies use current occupational status: disabled Travel in the last 8 weeks?: None Have you lived/traveled outside [place] in past 30 days?: No Contact w/someone who lives/traveled outside US past 30 days?: No Exposure to someone with infectious disease in past 14 days?: No Do you have a fever (greater than 100.4 F or 38 C)?: No Have you tested positive for COVID-19?: No Exposed to someone with COVID-19 in past 14 days?: No Do you have a sore throat?: No Do you have a cough?: No Do you have any weakness?: No Do you have any diarrhea?: No Are you experiencing any unusual bleeding?: No Do you have any muscle aches/pain?: No Do you have any abdominal pain?: No Are you experiencing loss of taste or smell?: No Other Medical History Have you received the Flu Vaccine for this season: No Have you received the Pneumonia Vaccine: No ROS Obtained: Yes All systems reviewed & no additional complaints except as documented Physical Exam General General appearance: alert and in no apparent distress Respiratory Respiratory exam: Present normal lung sounds bilaterally Cardiovascular Cardiovascular exam: Present regular rate and normal rhythm Extremities Exam Extremities exam: Present other (Normal range of motion left hip no evidence of any soft tissue deformities ecchymosis etc.) Neurological Exam Neurological exam: Present alert and oriented X3 Medical Decision Making Medical Records Screening: Per USPSTF and CDC recommendations, given the prevalence of disease in our region, it is our hospital?s policy to screen for HIV and viral Hepatitis for all patients aged 18 and over and those with ongoing risk factors. Josh Inquiry Pt receiving controlled substance: No Vital Signs: 11/15/24 08:01 Temperature 98.1 F Temperature Source Oral Pulse Rate [Left Radial] 51 L Respiratory Rate 15 Blood Pressure [Right Arm] 133/68 Blood Pressure Mean [Right Arm] 89 02 Sat by Pulse Oximetry 98 Oxygen Delivery Method Room Air Orders (Tests/Meds): ED MEDICATIONS Discontinued Medications Generic Name Dose Route Start Last Admin Trade Name Freq PRN Reason Stop Dose Admin Ketorolac Tromethamine 30 mg 11/15/24 08:05 11/15/24 08:26 Ketorolac 30mg/Ml Vial IM 11/15/24 08:06 30 mg ONCE ONE Administration ORDERS Category Date Time Status Hip XR left minimum 2 views [XR hip LT 2-3V w/pelvis] Exams 11/15/24 08:05 Taken Stat Medical Decision Narrative: Patient with above history and physical we will get plain films and administer Toradol and reassess. If her plain films are normal we will see if she can bear weight and ambulate. Reassessment 8:56 AM x-rays performed which I personally interpreted shows no evidence of any fractures or dislocations patient subsequently able to ambulate without difficulty in the emergency department. She was discharged back to her care facility. Critical Care Critical Care Time Critical Care Time: No
--- OUTSIDE RECORDS SUMMARY | 2024-11-15 08:14 | XMS_ITS | Clinical Summary ---
Author Organization [facility] Address [address] [place] [address] Phone Care Team Providers Care Operator Automated Process Name Role Phone Unavailable Primary Care Provider [...] Active fluticasone propionate (FLONASE) 50 mcg/actuation Nasl [place], Suspension 2 Sprays by Nasal route daily. [...] on file Sexual Orientation Not on file Last Filed Vital Signs Vital Sign Reading [...] 2) 2017 COVID-19 Vaccine ( - season) 2024 12/06/2021, 12/19/2020, 03/19/2020, Additional history exists Influenza Vaccine (#1) 2024 12/21/2019 DTaP/TDaP/Td (2 - Td or Tdap) 08/22/2031 08/21/2021 Meningococcal B Vaccine Aged Out No l onger eligible based on patient's age to complete this topic Insurance
[2024-11-15] MEDS: KETOROLAC 30MG/ML VIAL 30 MG IM (08:26)
--- NOTE | 2024-11-15 08:58 | PC.NURSE ---
pt ambulated in room with assistance of me and thomas roman RN
[2024-11-15 08:59] VITALS: BP 124/62; PULSE 54; O2SAT 99
--- NOTE | 2024-11-15 09:00 | PC.NURSE ---
[facility].
[2024-11-15 09:04] VITALS: BP 126/61; PULSE 63; RESP 15; TEMP 36.9; O2SAT 99
== END 2024-11-15 09:19 | disposition home or self-care (01) ==
PROVIDERS: Emergency Provider Student in an Organized Health Care Education/Training Program
DX: M25.552 Pain in left hip (principal); I69.328 Other speech and language deficits following cerebral infarction; I69.351 Hemiplegia and hemiparesis following cerebral infarction affecting right dominant side; I10 Essential (primary) hypertension
CPT/HCPCS: 73502; 96372; 99283; J1885

== ENCOUNTER 2024-11-16 05:29 | Emergency (ER) | payer MEDICAID, SELFPAY ==
[2024-11-16] VITALS (7 sets, daily range): BP systolic 130–147; BP diastolic 52–62; PULSE 50–93; RESP 18–20; TEMP 36.8; O2SAT 93–98; BMI 34.9
--- OUTSIDE RECORDS SUMMARY | 2024-11-16 05:35 | XMS_ITS | Clinical Summary ---
Author Organization [facility] Address [address] [place] [address] Phone Care Team Providers Care Global Marketing Specialist Name Role Phone Unavailable Primary Care Provider [...] Active fluticasone propionate (FLONASE) 50 mcg/actuation Nasl [place], Suspension 2 Sprays by Nasal route daily. [...] patient's age to complete this topic Insurance [id number] [id number] [facility] [place]seload [facility]
--- NOTE | 2024-11-16 05:41 | XR_ITS ---
FINAL REPORT CLINICAL HISTORY: leg pain COMPARISON: None FINDINGS: Two views of the left femur were obtained. There is no acute fracture or dislocation. The joint spaces are well preserved. There is no acute soft tissue abnormality. IMPRESSION: No acute abnormality identified. Reviewed, Interpreted and Dictated by Vince Davidson MD Transcribed by Tyra Phoenix Authenticated and [facility] [place] [place]
--- NOTE | 2024-11-16 05:41 | CT_ITS ---
FINAL REPORT TECHNIQUE: Axial images were obtained of the lumbar spine by computed tomography. Coronal and sagittal reconstruction process performed. This study was performed with techniques to keep radiation doses as low as reasonably achievable (ALARA). Individualized dose reduction techniques using automated exposure control or adjustment of mA and/or kV according to the patient''s size were employed. CLINICAL HISTORY: non-verbal, posterior left hip/leg pain COMPARISON: None FINDINGS: Lumbar vertebrae show normal height. Disc spaces are well-preserved. There is no malalignment. L1-2: Unremarkable. L2-3: Unremarkable. L3-4: Mild disc bulge. Mild bilateral neuroforaminal narrowing. L4-5: Moderate diffuse disc bulge. Moderate bilateral neuroforaminal narrowing. Bilateral facet hypertrophy left greater than right. L5-S1: Unremarkable. IMPRESSION: Diffuse disc bulge at L4-5 with bilateral neuroforaminal narrowing. Reviewed, Interpreted and Dictated by Vince Davidson MD Transcribed by Tyra Phoenix Authenticated and [facility]
--- NOTE | 2024-11-16 05:41 | CT_ITS ---
FINAL REPORT TECHNIQUE: Axial images through the pelvis were performed by computed tomography. Sagittal and coronal reconstruction images were performed. This study was performed with techniques to keep radiation doses as low as reasonably achievable (ALARA). Individualized dose reduction techniques using automated exposure control or adjustment of mA and/or kV according to the patient's size were employed. CLINICAL HISTORY: non verbal, left hip/upper leg pain COMPARISON: None FINDINGS: No fracture is identified. No dislocation identified. Hip joint spaces are preserved. The femoral heads have normal smooth contours. The superior and inferior pubic rami are intact. No soft tissue abnormality. IMPRESSION: No acute process. Reviewed, Interpreted and Dictated by Vince Davidson MD Transcribed by Tyra Phoenix Authenticated and [facility]
--- NOTE | 2024-11-16 06:04 | ED_ITS ---
Discharge Plan Disposition Patient Disposition: Home, Self-Care Prescriptions Prescriptions: No Action amlodipine 10 mg tablet 10 mg PO HS atorvastatin 10 mg tablet 10 mg PO DAILY citalopram 20 mg tablet 20 mg PO DAILY clobetasol 0.05 % ointment 1 applic TOPICAL BID donepezil 5 mg tablet 5 mg PO HS fenofibrate 54 mg tablet 54 mg PO DAILY omega-3 fatty acids [Fish Oil Concentrate] 1,000 mg capsule 1,000 mg PO BID hydroxyzine HCl 25 mg tablet 25 mg PO BID PRN (Reason: HTN) Rx Instructions: take 1/2 tablet po 2 twice a day lisinopril 40 mg tablet 40 mg PO DAILY loratadine 10 mg tablet 10 mg PO DAILY mirtazapine 15 mg tablet 15 mg PO HS oxcarbazepine 600 mg tablet 600 mg PO BID cyanocobalamin (vitamin B-12) 1,000 mcg capsule 1,000 mcg PO DAILY acetaminophen 500 mg capsule 500 mg PO Q6H PRN (Reason: Pain) gabapentin 300 mg capsule 300 mg PO TID Qty: 90 5RF cholecalciferol (vitamin D3) [Vitamin D3] 25 mcg (1,000 unit) Tablet 25 mcg PO DAILY medroxyprogesterone [Provera] 10 mg tablet 10 mg PO .2 tabs daily ondansetron 4 mg tablet,disintegrating 4 mg PO Q6H PRN (Reason: nausea and vomiting) Qty: 10 0RF Referrals Follow up/Referrals: Provider,Referral, [Primary Care Provider, Medical] - See instructions Activity Restrictions/Add. Instructions Additional Instructions/Restrictions: You have been seen and evaluated in the emergency department. Please follow-up with your primary care physician. You may take Tylenol and ibuprofen as needed for symptoms. Return to the ED should your symptoms worsen or should you develop difficulty walking, numbness to extremities, or weakness of the extremities. Clinical Impressions Clinical Impression: Acute pain of left lower extremity Print Language Print Language: Kyrgyz Discharge ED Provider: Francois Finn General Adult HPI <Francois Finn MD - Last Filed: 11/16/24 07:42> General Chief complaint: PAIN Stated complaint: Pain Time Seen by Provider: 11/16/24 05:30 Mode of Arrival: EMS Source of Information: Patient and EMS Description of Symptoms (Recalled from ER Triage Doc. by RN): Pain Pt presents to the ED from [facility] via [facility] with c/o pain. Pt is non-verbal but can answer yes and no . Pt is crying and pointing to her lower back and L thigh. When patient is asked if she is having pain in her back and leg, she rpeorts yes'. Pt was seen in the ED yesterday for similar complaint. History of Present Illness HPI narrative: 59 female with history of stroke and resultant communication difficulties, resident at [facility], presents for left leg pain. Patient went to a local [employer] [place] a [place] [facility] patients 2 days ago. She went home and slept. After that, she she came in yesterday morning complaining of left hip pain. Received x-rays that were negative and was discharged. She comes in this morning continue to complain of left hip/upper leg pain, she is unable/unwilling to communicate, only cries and points at her hip. She is unable to provide any significant history. Related Data Home Medications ?Medication ?Instructions ?Recorded ?Confirmed acetaminophen 500 mg capsule 500 mg PO Q6H PRN Pain 11/02/21 amlodipine 10 mg tablet 10 mg PO HS HTN 09/02/20 atorvastatin 10 mg tablet 10 mg PO DAILY Cholesterol 0 09/02/20 11/02/21 citalopram 20 mg tablet 20 mg PO DAILY Depression 11/02/21 clobetasol 0.05 % topical ointment 1 applic topical BI D psoriasis 09/02/20 11/02/21 cyanocobalamin (vitamin B-12) 1,000 mcg PO DAILY Suppl ement 09/02/20 11/02/21 1,000 mcg capsule donepezil 5 mg tablet 5 mg PO HS alzheimers 11/02/21 fenofibrate 54 mg tablet 54 mg PO DAILY Cholesterol 0 09/02/20 11/02/21 hydroxyzine HCl 25 mg tablet 25 mg PO BID PRN HTN 08/1811/02/21 lisinopril 40 mg tablet 40 mg PO DAILY HTN 09/02/20 11/02/21 loratadine 10 mg tablet 10 mg PO DAILY allergies 11/02/21 mirtazapine 15 mg tablet 15 mg PO HS Depression 09/0211/02/21 omega-3 fatty acids 1,000 mg 1,000 mg PO BID Supplemen t 09/02/20 11/02/21 capsule (Fish Oil Concentrate) oxcarbazepine 600 mg tablet 600 mg PO BID seizures 11/02/21 cholecalciferol (vitamin D3) 25 25 mcg PO DAILY Supple ment 11/02/21 11/02/21 mcg (1,000 unit) tablet (Vitamin D3) medroxyprogesterone 10 mg tablet 10 mg PO .2 tabs aguilar y hormones 11/02/21 11/02/21 (Provera) Previous Rx's ?Medication ?Instructions ?Recorded gabapentin 300 mg capsule 300 mg PO TID Pain #90 caps 09/10/22 ondansetron 4 mg disintegrating 4 mg PO Q6H PRN nausea and 01/14/24 tablet vomiting #10 tabs Allergies Allergy/AdvReac Type Severity Reaction Status Date / Time No Known Allergies Allergy Verified 11/16/24 05:35 [facility] <Francois Finn MD - Last Filed: 11/16/24 07:42> [facility] Disclaimer: The information contained in this section may have been updated after the patient was seen, as this information can be updated by other users. Medical History (Updated 11/16/24 @ 07:42 by Francois Finn MD) TBI (traumatic brain injury) History of contracture of joint Hx of cerebrovascular disorder History of intracranial injury Chronic pain Seizures Depression Dementia History of stroke Psoriasis Hyperlipidemia Hypertension Surgical History (Updated 11/02/21 @ 06:45 by Janine Quesada RN) History of surgery of head History of knee replacement Family History (Updated 11/02/21 @ 06:49 by Janine Quesada RN) Other No significant family history Social History (Updated 11/02/21 @ 14:21 by Curtis Velazquez CRNA) Smoking Status: Former smoker alcohol intake: never substance use type: denies use current occupational status: disabled Travel in the last 8 weeks?: None Have you lived/traveled outside US in past 30 days?: No Contact w/someone who lives/traveled outside US past 30 days?: No Exposure to someone with infectious disease in past 14 days?: No Do you have a fever (greater than 100.4 F or 38 C)?: No Have you tested positive for COVID-19?: No Exposed to someone with COVID-19 in past 14 days?: No Do you have a sore throat?: No Do you have a cough?: No Do you have any weakness?: No Do you have any diarrhea?: No Are you experiencing any unusual bleeding?: No Do you have any muscle aches/pain?: Yes Do you have any abdominal pain?: No Are you experiencing loss of taste or smell?: No Other Medical History Have you received the Flu Vaccine for this season: No Have you received the Pneumonia Vaccine: No <Francois Finn MD - Last Filed: 11/16/24 07:42> ROS Obtained: Yes All systems reviewed & no additional complaints except as documented Physical Exam <Francois Finn MD - Last Filed: 11/16/24 07:42> General General appearance: alert and anxious Head Head exam: atraumatic and normocephalic Eye Eye exam: Present normal appearance, PERRL and EOMI ENT ENT exam: Present normal oropharynx and normal external ear exam Neck Neck exam: Present normal inspection and full ROM Chest Chest inspection: Present normal inspection and symmetric chest wall rise; Absent tenderness Respiratory Respiratory exam: Present normal lung sounds bilaterally; Absent respiratory distress Cardiovascular Cardiovascular exam: Present regular rate and normal rhythm Abdominal Exam Abdominal exam: Present soft; Absent distention, tenderness or guarding Extremities Exam Extremities exam: Present normal inspection and tenderness (Patient cries with palpation of the left hip/upper outer thigh); Absent edema or joint swelling Back Exam Back exam: Present normal inspection; Absent tenderness Neurological Exam Neurological exam: Present alert and other (Patient minimally communicative, but at baseline per EMS.) Psychiatric Psychiatric exam: Present agitated Skin Skin exam: Present warm, dry and normal color Lymphatic Lymphatic Findings: no adenopathy Medical Decision Making <Francois Finn MD - Last Filed: 11/16/24 07:42> Medical Records Medical records reviewed: Yes I reviewed the patient's medical records. Screening: Per USPSTF and CDC recommendations, given the prevalence of disease in our region, it is our hospital?s policy to screen for HIV and viral Hepatitis for all patients aged 18 and over and those with ongoing risk factors. Josh Inquiry Pt receiving controlled substance: No Josh was queried for this patient: No Vital Signs: 11/16/24 05:33 11/16/24 05:41 11/16/24 05:45 Temperature 98.2 F Temperature Source Oral Pulse Rate 75 64 Pulse Rate [Left] 93 H Respiratory Rate 18 Blood Pressure Blood Pressure [Right Arm] 147/52 H Blood Pressure Mean Blood Pressure Mean [Right Arm] 83 Blood Pressure Source [Right Arm] Automatic Cuff Blood Pressure Position [Right Arm] Sitting 02 Sat by Pulse Oximetry 97 97 98 Oxygen Delivery Method Room Air 11/16/24 06:17 11/16/24 06:29 11/16/24 06:30 Temperature Temperature Source Pulse Rate 66 Pulse Rate [Left] Respiratory Rate Blood Pressure 143/58 H 138/62 Blood Pressure [Right Arm] Blood Pressure Mean 84 75 Blood Pressure Mean [Right Arm] Blood Pressure Source [Right Arm] Blood Pressure Position [Right Arm] 02 Sat by Pulse Oximetry 98 Oxygen Delivery Method Lab Data Lab results reviewed: Yes I reviewed the patient's lab results. Lab Results 11/16/24 06:30: WBC 8.0, RBC 4.06 L, Hgb 12.6, Hct 36.7 L, MCV 90.4, MCH 31.0, MCHC 34.3, RDW 12.6, Plt Count 313, MPV 9.3, Neut % (Auto) 61.1, Lymph % (Auto) 27.3, [place] % (Auto) 6.5, Eos % (Auto) 4.2, Baso % (Auto) 0.6, Neut # (Auto) 4.9, Lymph # (Auto) 2.2, [place] # (Auto) 0.5, Eos # (Auto) 0.3, Baso # (Auto) 0.1, Sodium 142, Potassium 4.5, Chloride 106, Carbon Dioxide 25, Anion Gap 15.5 H, B UN 19 H, Creatinine 1.10 H, Estimated Creat Clear 85, Estimated GFR 51 L, Est GFR ( Amer) 62, Glucose 102 H, Calcium 9.5, Total Bilirubin 0.7, AST 30, ALT 18, Alkaline Phosphatase 68, Total Protein 7.4, Albumin 4.4, Globulin 3.0, Albumin/Globulin Ratio 1.5 11/16/24 06:30 11/16/24 06:30 Orders (Tests/Meds): ED MEDICATIONS Discontinued Medications Generic Name Dose Route Start Last Admin Trade Name Freq PRN Reason Stop Dose Admin Acetaminophen 1,000 mg 11/16/24 05:41 11/16/24 06:23 Acetaminophen 500mg Tab PO 11/16/24 05:42 1,000 mg ONCE ONE Administration Ketorolac Tromethamine 30 mg 11/16/24 05:41 11/16/24 06:23 Ketorolac 30mg/Ml Vial IV 11/16/24 05:42 30 mg ONCE ONE Administration Morphine Sulfate 4 mg 11/16/24 05:41 11/16/24 06:24 Morphine 4mg/Ml Syringe IV 11/16/24 05:42 4 mg ONCE ONE Administration Ondansetron HCl 4 mg 11/16/24 06:01 11/16/24 06:23 Ondansetron 4mg/2ml Vial IV 11/16/24 06:02 4 mg ONCE ONE Administration ORDERS Category Date Time Status CT bony pelvis Stat Cat Scan 11/16/24 05:[address] lumbar spine wo con Stat Cat Scan 11/16/24 05:41 Completed Femur XR left 2 views [XR femur LT 2V] Stat Exams 11/16/24 05:41 Completed CBC w/Auto Diff [Complete Blood Count Auto Diff] Stat Lab 11/16/24 06:30 Completed CMP [Comprehensive Metabolic Panel] Stat Lab 11/16/24 06:30 Completed Medical Decision Narrative: 59-year-old female with history stroke with resultant communication difficulty/mental disability, presents with left hip pain for the second time in 2 days, 3 days ago she participated in a dance at a local [employer] [facility] [place] [facility]. No reported trauma.. History was obtained via interactive discussion with patient, EMS, chart review. On arrival, patient is afebrile, hemodynamically stable, satting properly on room air, alert and interactive but nonverbal, moving all extremities spontaneously. Full physical exam performed and significant for apparent tenderness on exam to the hip, no obvious bruising or deformity. Differential includes but is not limited to fracture, dislocation, strain, disc herniation, sciatica. Patient was given Tylenol, Toradol, morphine, Zofran for symptomatic management and correction of underlying abnormalities. Workup initiated including CT lumbar spine, CT bony pelvis, femur x-ray. On re-evaluation, patient [remains afebrile, HD stable.] Laboratory workup independently interpreted by me and significant for no significant leukocytosis, no significant electrolyte derangement, renal function essentially at baseline.. Imaging independently interpreted by me and significant for no obvious acute fracture.. See radiology read for full review of final results. At this time care handed off to oncoming physician pending official radiographic imaging, reassessment. <Krystinrosa isela Cabezas, DO - Last Filed: 11/16/24 07:53> Vital Signs: 11/16/24 05:33 11/16/24 05:41 11/16/24 05:45 Temperature 98.2 F Temperature Source Oral Pulse Rate 75 64 Pulse Rate [Left] 93 H Respiratory Rate 18 Blood Pressure Blood Pressure [Right Arm] 147/52 H Blood Pressure Mean Blood Pressure Mean [Right Arm] 83 Blood Pressure Source [Right Arm] Automatic Cuff Blood Pressure Position [Right Arm] Sitting 02 Sat by Pulse Oximetry 97 97 98 Oxygen Delivery Method Room Air 11/16/24 06:17 11/16/24 06:29 11/16/24 06:30 Temperature Temperature Source Pulse Rate 66 Pulse Rate [Left] Respiratory Rate Blood Pressure 143/58 H 138/62 Blood Pressure [Right Arm] Blood Pressure Mean 84 75 Blood Pressure Mean [Right Arm] Blood Pressure Source [Right Arm] Blood Pressure Position [Right Arm] 02 Sat by Pulse Oximetry 98 Oxygen Delivery Method Lab Data Lab Results 11/16/24 06:30: WBC 8.0, RBC 4.06 L, Hgb 12.6, Hct 36.7 L, MCV 90.4, MCH 31.0, MCHC 34.3, RDW 12.6, Plt Count 313, MPV 9.3, Neut % (Auto) 61.1, Lymph % (Auto) 27.3, [place] % (Auto) 6.5, Eos % (Auto) 4.2, Baso % (Auto) 0.6, Neut # (Auto) 4.9, Lymph # (Auto) 2.2, [place] # (Auto) 0.5, Eos # (Auto) 0.3, Baso # (Auto) 0.1, Sodium 142, Potassium 4.5, Chloride 106, Carbon Dioxide 25, Anion Gap 15.5 H, B UN 19 H, Creatinine 1.10 H, Estimated Creat Clear 85, Estimated GFR 51 L, Est GFR ( Amer) 62, Glucose 102 H, Calcium 9.5, Total Bilirubin 0.7, AST 30, ALT 18, Alkaline Phosphatase 68, Total Protein 7.4, Albumin 4.4, Globulin 3.0, Albumin/Globulin Ratio 1.5 Orders (Tests/Meds): ED MEDICATIONS Discontinued Medications Generic Name Dose Route Start Last Admin Trade Name Birdie PRN Reason Stop Dose Admin Acetaminophen 1,000 mg 11/16/24 05:41 11/16/24 06:23 Acetaminophen 500mg Tab PO 11/16/24 05:42 1,000 mg ONCE ONE Administration Ketorolac Tromethamine 30 mg 11/16/24 05:41 11/16/24 06:23 Ketorolac 30mg/Ml Vial IV 11/16/24 05:42 30 mg ONCE ONE Administration Morphine Sulfate 4 mg 11/16/24 05:41 11/16/24 06:24 Morphine 4mg/Ml Syringe IV 11/16/24 05:42 4 mg ONCE ONE Administration Ondansetron HCl 4 mg 11/16/24 06:01 11/16/24 06:23 Ondansetron 4mg/2ml Vial IV 11/16/24 06:02 4 mg ONCE ONE Administration ORDERS Category Date Time Status CT bony pelvis Stat Cat Scan 11/16/24 05:[address] lumbar spine wo con Stat Cat Scan 11/16/24 05:41 Completed Femur XR left 2 views [XR femur LT 2V] Stat Exams 11/16/24 05:41 Completed CBC w/Auto Diff [Complete Blood Count Auto Diff] Stat Lab 11/16/24 06:30 Completed CMP [Comprehensive Metabolic Panel] Stat Lab 11/16/24 06:30 Completed Medical Decision Narrative: 59-year-old female with history stroke with resultant communication difficulty/mental disability, presents with left hip pain for the second time in 2 days, 3 days ago she participated in a dance at a local [employer] [facility] [place] [facility]. No reported trauma.. History was obtained via interactive discussion with patient, EMS, chart review. On arrival, patient is afebrile, hemodynamically stable, satting properly on room air, alert and interactive but nonverbal, moving all extremities spontaneously. Full physical exam performed and significant for apparent tenderness on exam to the hip, no obvious bruising or deformity. Differential includes but is not limited to fracture, dislocation, strain, disc herniation, sciatica. Patient was given Tylenol, Toradol, morphine, Zofran for symptomatic management and correction of underlying abnormalities. Workup initiated including CT lumbar spine, CT bony pelvis, femur x-ray. On re-evaluation, patient [remains afebrile, HD stable.] Laboratory workup independently interpreted by me and significant for no significant leukocytosis, no significant electrolyte derangement, renal function essentially at baseline.. Imaging independently interpreted by me and significant for no obvious acute fracture.. See radiology read for full review of final results. At this time care handed off to oncoming physician pending official radiographic imaging, reassessment. Care transferred to myself pending radiographic imaging reads and clinical reassessment. Lumbar spine TT notable for L4-L5 disc bulge. Pelvic CT with no acute fractures. Femoral axillary with no acute fractures. On clinical reassessment, the patient is ambulatory. She is appropriate for discharge home back to facility. Procedures <Francois Finn MD - Last Filed: 11/16/24 07:42> Risk/Benefits of Procedure(s) Were Explained: Yes Critical Care <Francois Finn MD - Last Filed: 11/16/24 07:42> Critical Care Time Critical Care Time: No
[2024-11-16] MEDS: ONDANSETRON 4MG/2ML VIAL 4 MG IV (06:23)
[2024-11-16] MEDS: KETOROLAC 30MG/ML VIAL 30 MG IV (06:23)
[2024-11-16] MEDS: ACETAMINOPHEN 500MG TAB 1000 MG PO (06:23)
[2024-11-16] MEDS: MORPHINE 4MG/ML SYRINGE 4 MG IV (06:24)
[2024-11-16 06:37] LABS: Hematocrit 36.7 % (37.0-47.0); Hemoglobin 12.6 g/dL (12.2-16.2); Immature Granulocytes % 0.3 %; Mean Corpuscular HGB Conc 34.3 g/dL (31.8-35.4); Mean Corpuscular Hemoglobin 31.0 pg (27.0-31.2); Mean Corpuscular Volume 90.4 fl (81-99); Nucleated Red Blood Cells % 0 %; Platelet Count 313 K/mm3 (142-424); Red Blood Count 4.06 M/mm3 (4.20-5.40); Red Cell Distribution Width-SD 41.2 fL; White Blood Count 8.0 K/mm3 (4.8-10.8)
[2024-11-16 06:47] LABS: Alanine Aminotransferase 18 U/L (12-78); Albumin Level 4.4 g/dl (3.5-5.0); Albumin/Globulin Ratio 1.5 (1.1-1.8); Alkaline Phosphatase 68 U/L (38-126); Anion Gap 15.5 mEq/L (5-15); Aspartate Amino Transferase 30 U/L (14-36); Bilirubin,Total 0.7 mg/dl (0.2-1.3); Blood Urea Nitrogen 19 mg/dl (7-17); Calcium 9.5 mg/dl (8.4-10.2); Carbon Dioxide 25 mmol/L (22.0-30.0); Chloride 106 mmol/L (98-107); Creatinine Clearance Estimated 85 mL/min (50-200); Creatinine,Serum 1.10 mg/dl (0.52-1.04); Estimated Glomerular Filt Rate 51 ml/min (>60); GFR (African American) 62 ML/MIN (>60); Globulin 3.0 g/dL (1.3-3.2); Glucose 102 mg/dl (74-100); Potassium 4.5 mmoL/L (3.5-5.1); Sodium 142 mmol/L (136-145); Total Protein,Serum 7.4 g/dl (6.3-8.2)
--- NOTE | 2024-11-16 08:05 | PC.NURSE ---
[facility] NOTIFIED FOR TRANSPORT
== END 2024-11-16 08:15 | disposition home or self-care (01) ==
PROVIDERS: Emergency Medicine; Emergency Provider Student in an Organized Health Care Education/Training Program
DX: M79.605 Pain in left leg (principal); I69.328 Other speech and language deficits following cerebral infarction; I69.351 Hemiplegia and hemiparesis following cerebral infarction affecting right dominant side; I10 Essential (primary) hypertension; Z87.891 Personal history of nicotine dependence
CPT/HCPCS: 72131; 72192; 73552; 80053; 85025; 96374; 96375; 99284; 99285; J1885; J2270; J2405

== ENCOUNTER 2024-11-17 10:23 | Emergency (ER) | payer MEDICAID, SELFPAY ==
[2024-11-17 10:30] VITALS: BP 153/65; PULSE 79; RESP 19; TEMP 36.5; O2SAT 96; BMI 32.9
[2024-11-17 10:31] VITALS: BP 122/28; PULSE 69; RESP 17; O2SAT 94
--- OUTSIDE RECORDS SUMMARY | 2024-11-17 10:43 | XMS_ITS | Clinical Summary ---
Author Organization [facility] Address [address] [place] [address] Phone Care Team Providers Care Embedder Name Role Phone Unavailable Primary Care Provider [...] Active fluticasone propionate (FLONASE) 50 mcg/actuation Nasl [place], Suspension 2 Sprays by Nasal route daily. [...]
[2024-11-17 10:49] VITALS: PULSE 60; RESP 17; O2SAT 96
[2024-11-17 11:00] VITALS: BP 126/65; PULSE 59; PULSE 78; RESP 17; RESP 19; O2SAT 94; O2SAT 98
[2024-11-17] MEDS: METHOCARBAMOL 500MG TABLET 1500 MG PO (11:04)
[2024-11-17] MEDS: OXYCODONE 5MG IMMEDIATE RELEASE TABLET 5 MG PO (11:04)
[2024-11-17] MEDS: DEXAMETHASONE 4MG TABLET 10 MG PO (11:04)
--- NOTE | 2024-11-17 11:10 | HMH.EDGENADL ---
Discharge Plan Disposition Patient Disposition: Home, Self-Care Condition: Good Prescriptions Prescriptions: No Action amlodipine 10 mg tablet 10 mg PO HS atorvastatin 10 mg tablet 10 mg PO DAILY citalopram 20 mg tablet 20 mg PO DAILY clobetasol 0.05 % ointment 1 applic TOPICAL BID donepezil 5 mg tablet 5 mg PO HS fenofibrate 54 mg tablet 54 mg PO DAILY omega-3 fatty acids [Fish Oil Concentrate] 1,000 mg capsule 1,000 mg PO BID hydroxyzine HCl 25 mg tablet 25 mg PO BID PRN (Reason: HTN) Rx Instructions: take 1/2 tablet po 2 twice a day lisinopril 40 mg tablet 40 mg PO DAILY loratadine 10 mg tablet 10 mg PO DAILY mirtazapine 15 mg tablet 15 mg PO HS oxcarbazepine 600 mg tablet 600 mg PO BID cyanocobalamin (vitamin B-12) 1,000 mcg capsule 1,000 mcg PO DAILY acetaminophen 500 mg capsule 500 mg PO Q6H PRN (Reason: Pain) gabapentin 300 mg capsule 300 mg PO TID Qty: 90 5RF cholecalciferol (vitamin D3) [Vitamin D3] 25 mcg (1,000 unit) Tablet 25 mcg PO DAILY medroxyprogesterone [Provera] 10 mg tablet 10 mg PO .2 tabs daily ondansetron 4 mg tablet,disintegrating 4 mg PO Q6H PRN (Reason: nausea and vomiting) Qty: 10 0RF Referrals Follow up/Referrals: Provider,Referral, MD [Referring, Medical] - See instructions Activity Restrictions/Add. Instructions Additional Instructions/Restrictions: Please return if any new or worsening symptoms. Clinical Impressions Clinical Impression: Sciatica of left side Print Language Print Language: Danish Discharge ED Provider: Caleb Quiroz General Adult HPI General Chief complaint: PAIN Stated complaint: Back pain Time Seen by Provider: 11/17/24 10:29 Mode of Arrival: EMS Source of Information: Patient and EMS Description of Symptoms (Recalled from ER Triage Doc. by RN): Pateint presents to ED via EMS from [place] with c/o left upper leg pain and rash thoughout. Chart from facility notes hx of ezema. Patient reports rash has been there for a long period of time. 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 History of Present Illness HPI narrative: This is a 59-year-old female patient, with past medical history of hypertension, hyperlipidemia, traumatic brain injury, prior stroke with history of right sided upper extremity contracture, and seizures, who is presenting to the emergency department today for evaluation of left hip pain. The patient has been seen here twice this week for related pain. Per prior chart review the patient was reportedly [place] a dance [place] and had a questionable fall with resultant left hip pain. Initially she was worked up with x-rays that were negative and she was discharged home. She returned to the emergency department yesterday and had a CT scan of her bony pelvis and lumbar spine that was significant for an L4-L5 disc bulge diffusely. She was discharged home again. Today she returns to the emergency department for this pain. My experience is very similar to the prior provider's experience in which history is severely limited by her lack of ability to communicate with articulate speech. She essentially is able to answer yes and no to different questions, although I am not entirely sure that she understands exactly what I am asking. Today she communicates nonverbally that she is having pain in her back and left gluteal region as well as in the posterior aspect of her left lower extremity. Related Data Home Medications ?Medication ?Instructions ?Recorded ?Confirmed acetaminophen 500 mg capsule 500 mg PO Q6H PRN Pain 09/02/20 11/02/21 amlodipine 10 mg tablet 10 mg PO HS HTN 09/02/20 11/02/21 atorvastatin 10 mg tablet 10 mg PO DAILY Cholesterol 09/02/20 11/02/21 citalopram 20 mg tablet 20 mg PO DAILY Depression 09/02/20 11/02/21 clobetasol 0.05 % topical ointment 1 applic topical BID psoriasis 09/02/20 11/02/21 cyanocobalamin (vitamin B-12) 1,000 mcg PO DAILY Supplement 09/02/20 11/02/21 1,000 mcg capsule donepezil 5 mg tablet 5 mg PO HS alzheimers 09/02/20 11/02/21 fenofibrate 54 mg tablet 54 mg PO DAILY Cholesterol 09/02/20 11/02/21 hydroxyzine HCl 25 mg tablet 25 mg PO BID PRN HTN 09/02/20 11/02/21 lisinopril 40 mg tablet 40 mg PO DAILY HTN 09/02/20 11/02/21 loratadine 10 mg tablet 10 mg PO DAILY allergies 09/02/20 11/02/21 mirtazapine 15 mg tablet 15 mg PO HS Depression 09/02/20 11/02/21 omega-3 fatty acids 1,000 mg 1,000 mg PO BID Supplement 09/02/20 11/02/21 capsule (Fish Oil Concentrate) oxcarbazepine 600 mg tablet 600 mg PO BID seizures 09/02/20 11/02/21 cholecalciferol (vitamin D3) 25 25 mcg PO DAILY Supplement 11/02/21 11/02/21 mcg (1,000 unit) tablet (Vitamin D3) medroxyprogesterone 10 mg tablet 10 mg PO .2 tabs daily hormones 11/02/21 11/02/21 (Provera) Previous Rx's ?Medication ?Instructions ?Recorded gabapentin 300 mg capsule 300 mg PO TID Pain #90 caps 09/10/22 ondansetron 4 mg disintegrating 4 mg PO Q6H PRN nausea and 01/14/24 tablet vomiting #10 tabs Allergies Allergy/AdvReac Type Severity Reaction Status Date / Time No Known Allergies Allergy Verified 11/16/24 05:35 [facility] Disclaimer: The information contained in this section may have been updated after the patient was seen, as this information can be updated by other users. Medical History (Updated 11/17/24 @ 11:45 by Caleb Quiroz DO) TBI (traumatic brain injury) History of contracture of joint Hx of cerebrovascular disorder History of intracranial injury Chronic pain Seizures Depression Dementia History of stroke Psoriasis Hyperlipidemia Hypertension Surgical History (Updated 11/02/21 @ 06:45 by Janine Quesada RN) History of surgery of head History of knee replacement Family History (Updated 11/02/21 @ 06:49 by Janine Quesada RN) Other No significant family history Social History (Updated 11/02/21 @ 14:21 by Curtis Velazquez CRNA) Smoking Status: Never smoker alcohol intake: never substance use type: denies use current occupational status: disabled Travel in the last 8 weeks?: None Have you lived/traveled outside [place] in past 30 days?: No Contact w/someone who lives/traveled outside US past 30 days?: No Exposure to someone with infectious disease in past 14 days?: No Do you have a fever (greater than 100.4 F or 38 C)?: No Have you tested positive for COVID-19?: No Exposed to someone with COVID-19 in past 14 days?: No Do you have a sore throat?: No Do you have a cough?: No Do you have any weakness?: No Do you have any diarrhea?: No Are you experiencing any unusual bleeding?: No Do you have any muscle aches/pain?: No Do you have any abdominal pain?: No Are you experiencing loss of taste or smell?: No Other Medical History Have you received the Flu Vaccine for this season: No Have you received the Pneumonia Vaccine: No ROS Obtained: Yes Systems reviewed as appropriate & no additional complaints except as documented Physical Exam General General appearance: other (See MDM) Respiratory Respiratory exam: Present other (See MDM) Cardiovascular Cardiovascular exam: Present other (See MDM) Neurological Exam Neurological exam: Present other (See MDM) Medical Decision Making Medical Records Medical records reviewed: Yes I reviewed the patient's medical records. Screening: Per USPSTF and CDC recommendations, given the prevalence of disease in our region, it is our hospital?s policy to screen for HIV and viral Hepatitis for all patients aged 18 and over and those with ongoing risk factors. Josh Inquiry Pt receiving controlled substance: No Josh was queried for this patient: No Vital Signs: 11/17/24 10:30 11/17/24 10:31 11/17/24 10:49 Temperature 97.7 F Temperature Source Oral Pulse Rate 69 60 Pulse Rate [Left] 79 Respiratory Rate 19 17 17 Blood Pressure 122/28 L Blood Pressure [Right Arm] 153/65 H Blood Pressure Mean 59 Blood Pressure Mean [Right Arm] 94 Blood Pressure Source [Right Arm] Automatic Cuff Blood Pressure Position [Right Arm] Supine 02 Sat by Pulse Oximetry 96 94 L 96 Oxygen Delivery Method Room Air Room Air Room Air 11/17/24 11:00 11/17/24 11:00 Temperature Temperature Source Pulse Rate 59 L 78 Pulse Rate [Left] Respiratory Rate 19 17 Blood Pressure 126/65 Blood Pressure [Right Arm] Blood Pressure Mean 85 Blood Pressure Mean [Right Arm] Blood Pressure Source [Right Arm] Blood Pressure Position [Right Arm] 02 Sat by Pulse Oximetry 94 L 98 Oxygen Delivery Method Room Air Room Air Orders (Tests/Meds): ED MEDICATIONS Discontinued Medications Generic Name Dose Route Start Last Admin Trade Name Freq PRN Reason Stop Dose Admin Dexamethasone 10 mg 11/17/24 10:47 11/17/24 11:04 Dexamethasone 4mg Tablet PO 11/17/24 10:48 10 mg ONCE ONE Administration Methocarbamol 1,500 mg 11/17/24 10:49 11/17/24 11:04 Methocarbamol 500mg Tablet PO 11/17/24 10:50 1,500 mg ONCE ONE Administration Oxycodone HCl 5 mg 11/17/24 10:49 11/17/24 11:04 Oxycodone 5mg Immediate Release Tablet PO 11/17/24 10:50 5 mg ONCE ONE Administration Medical Decision Narrative: In summary, this is a 59-year-old female patient with history of intellectual disability who presented for evaluation of left hip pain with radiation down the posterior aspect of the left leg. Patient has been seen in the emergency department twice this week for similar pain and has had a CT scan of the lumbar spine and the bony pelvis which was significant for an L4-L5 disc bulge. Patient's comorbidities include hypertension, hyperlipidemia, history of stroke, and seizures. On initial evaluation of the patient they were resting comfortably in no acute distress and nontoxic in appearance. They are hemodynamically stable, saturating well room air, and are neurologically intact. On physical examination the patient she is ambulatory in the room without difficulty. She has 5 out of 5 strength in her bilateral upper and lower extremities. Assessing sensation is quite difficult secondary to her baseline intellectual disability. The patient does not have any tenderness in the thoracic or lumbar spine. She does have tenderness within the left buttock. Differential diagnosis includes lumbar disc bulge, sciatica, among others. We have obtained a postvoid residual bladder scan which showed 17 mL of postvoid residual volume. Based on this I do not feel that she is experiencing an acute spinal cord emergency. My suspicion is that this patient is likely experiencing sciatica as evidenced by the lumbar disc bulge noted on CT scan earlier this week and pain that is radiating down the posterior aspect of the left leg. We have treated the patient with 1500 mg Robaxin, 5 mg of oxycodone, and 10 mg of dexamethasone. During the patient stay in the emergency department she became quite agitated and began screaming at the emergency department staff. The only words that the patient was saying is that she wanted to leave and go home. She is walking around the room without difficulty. I do not feel that she necessitates further workup at this time. We have called [facility] for transport back to their facility. Patient was discharged back to [place] in stable condition. Critical Care Critical Care Time Critical Care Time: No
--- NOTE | 2024-11-17 11:33 | PC.NURSE ---
[facility] notified of need for pickup of patient. Stated they will call the caravan.
--- NOTE | 2024-11-17 12:41 | PC.NURSE ---
Patient awaiting [facility] for transport back to [place].
--- NOTE | 2024-11-17 14:25 | PC.NURSE ---
Visualized patient locking wheel chair, ambulating independently to bathroom, and then back to wheelchair.
--- NOTE | 2024-11-17 14:33 | PC.NURSE ---
Marshal Carbone called [facility] @ 12:06, 12:54 and 13:31 for update on when they will be here to pick patient up and transport to [place].
[2024-11-17 14:41] VITALS: BP 126/65; PULSE 60; RESP 16; TEMP 36.6; O2SAT 94
== END 2024-11-17 14:41 | disposition home or self-care (01) ==
PROVIDERS: Emergency Provider Student in an Organized Health Care Education/Training Program; PCP Internal Medicine Adolescent Medicine
DX: M54.32 Sciatica, left side (principal); R45.1 Restlessness and agitation
CPT/HCPCS: 51798; 99284; J8540

== ENCOUNTER 2024-11-25 06:33 | Emergency (ER) | payer MEDICAID, SELFPAY ==
--- NOTE | 2024-11-25 06:32 | XR_ITS ---
FINAL REPORT CLINICAL HISTORY: leg pain FINDINGS: LEFT FEMUR 2 views were obtained. There is no acute fracture or dislocation. Visualized joint spaces are normally aligned. There is degenerative joint disease of the left knee. Soft tissues are unremarkable. IMPRESSION: No acute bony abnormality. Reviewed, Interpreted and Dictated by Lindsey Apodaca MD Transcribed by Gabriela Soares Authenticated and [facility]
--- NOTE | 2024-11-25 06:32 | XR_ITS ---
FINAL REPORT CLINICAL HISTORY: leg pain FINDINGS: SINGLE VIEW PELVIS: A single view of the pelvis was obtained. There is no acute fracture or dislocation. Vizualized joint spaces are normally aligned. Soft tissues are unremarkable. IMPRESSION: No acute bony abnormality. Reviewed, Interpreted and Dictated by Lindsey Apodaca MD Transcribed by Gabriela Soares Authenticated and [facility]
[2024-11-25 06:34] VITALS: BP 173/85; PULSE 70; RESP 20; TEMP 36.7; O2SAT 95; BMI 32.3
[2024-11-25] MEDS: IBUPROFEN 600 MG TABLET PO (06:42)
[2024-11-25] MEDS: ACETAMINOPHEN 500MG TAB 1000 MG PO (06:42)
[2024-11-25] MEDS: LIDOCAINE 5% TRANSDERMAL PATCH 1 EACH TD (06:43)
--- NOTE | 2024-11-25 06:44 | HMH.EDGENADL ---
Discharge Plan Disposition Patient Disposition: Home, Self-Care Prescriptions Prescriptions: No Action amlodipine 10 mg tablet 10 mg PO HS atorvastatin 10 mg tablet 10 mg PO DAILY citalopram 20 mg tablet 20 mg PO DAILY clobetasol 0.05 % ointment 1 applic TOPICAL BID donepezil 5 mg tablet 5 mg PO HS fenofibrate 54 mg tablet 54 mg PO DAILY omega-3 fatty acids [Fish Oil Concentrate] 1,000 mg capsule 1,000 mg PO BID hydroxyzine HCl 25 mg tablet 25 mg PO BID PRN (Reason: HTN) Rx Instructions: take 1/2 tablet po 2 twice a day lisinopril 40 mg tablet 40 mg PO DAILY loratadine 10 mg tablet 10 mg PO DAILY mirtazapine 15 mg tablet 15 mg PO HS oxcarbazepine 600 mg tablet 600 mg PO BID cyanocobalamin (vitamin B-12) 1,000 mcg capsule 1,000 mcg PO DAILY acetaminophen 500 mg capsule 500 mg PO Q6H PRN (Reason: Pain) gabapentin 300 mg capsule 300 mg PO TID Qty: 90 5RF cholecalciferol (vitamin D3) [Vitamin D3] 25 mcg (1,000 unit) Tablet 25 mcg PO DAILY medroxyprogesterone [Provera] 10 mg tablet 10 mg PO .2 tabs daily ondansetron 4 mg tablet,disintegrating 4 mg PO Q6H PRN (Reason: nausea and vomiting) Qty: 10 0RF Referrals Follow up/Referrals: Alejandro Chicas DO [Staff Physician, Orthopedics] - See instructions Provider,Referral, [Primary Care Provider, Medical] - See instructions Activity Restrictions/Add. Instructions Additional Instructions/Restrictions: At this time it was felt you are safe to be discharged home. If new or worsening symptoms please do not hesitate to return the emergency department. Please call and schedule appoint with Dr. Chicas as soon as you are able. Clinical Impressions Clinical Impression: Hip pain, left, Selective mutism Print Language Print Language: Lithuanian Discharge ED Provider: Francois Finn General Adult HPI <Francois Finn MD - Last Filed: 11/25/24 06:58> General Chief complaint: PAIN Stated complaint: hip pain Time Seen by Provider: 11/25/24 06:35 Mode of Arrival: EMS Source of Information: EMS Description of Symptoms (Recalled from ER Triage Doc. by RN): [facility] staff state that patient c/o left fip pain History of Present Illness HPI narrative: 59-year-old female with history of stroke and TBI, resident at [facility], presents for leg pain. She had a fall within the last couple of weeks and I saw and evaluated her and ordered CT imaging which did not show any bony changes. She pretends to not be able to speak but then at other times is able to speak. Per [facility], she just lays in bed all day. They called 911 because she is complaining of leg pain. EMS reports that she was quite the entire ambulance ride here, and upon arrival she starts acting strange and screaming. I am concerned for malingering. Related Data Home Medications ?Medication ?Instructions ?Recorded ?Confirmed acetaminophen 500 mg capsule 500 mg PO Q6H PRN Pain 09/02/20 11/02/21 amlodipine 10 mg tablet 10 mg PO HS HTN 09/02/20 11/02/21 atorvastatin 10 mg tablet 10 mg PO DAILY Cholesterol 09/02/20 11/02/21 citalopram 20 mg tablet 20 mg PO DAILY Depression 09/02/20 11/02/21 clobetasol 0.05 % topical ointment 1 applic topical BID psoriasis 09/02/20 11/02/21 cyanocobalamin (vitamin B-12) 1,000 mcg PO DAILY Supplement 09/02/20 11/02/21 1,000 mcg capsule donepezil 5 mg tablet 5 mg PO HS alzheimers 09/02/20 11/02/21 fenofibrate 54 mg tablet 54 mg PO DAILY Cholesterol 09/02/20 11/02/21 hydroxyzine HCl 25 mg tablet 25 mg PO BID PRN HTN 09/02/20 11/02/21 lisinopril 40 mg tablet 40 mg PO DAILY HTN 09/02/20 11/02/21 loratadine 10 mg tablet 10 mg PO DAILY allergies 09/02/20 11/02/21 mirtazapine 15 mg tablet 15 mg PO HS Depression 09/02/20 11/02/21 omega-3 fatty acids 1,000 mg 1,000 mg PO BID Supplement 09/02/20 11/02/21 capsule (Fish Oil Concentrate) oxcarbazepine 600 mg tablet 600 mg PO BID seizures 09/02/20 11/02/21 cholecalciferol (vitamin D3) 25 25 mcg PO DAILY Supplement 11/02/21 11/02/21 mcg (1,000 unit) tablet (Vitamin D3) medroxyprogesterone 10 mg tablet 10 mg PO .2 tabs daily hormones 11/02/21 11/02/21 (Provera) Previous Rx's ?Medication ?Instructions ?Recorded gabapentin 300 mg capsule 300 mg PO TID Pain #90 caps 09/10/22 ondansetron 4 mg disintegrating 4 mg PO Q6H PRN nausea and 01/14/24 tablet vomiting #10 tabs Allergies Allergy/AdvReac Type Severity Reaction Status Date / Time No Known Allergies Allergy Verified 11/16/24 05:35 [facility] <Francois Finn MD - Last Filed: 11/25/24 06:58> [facility] Disclaimer: The information contained in this section may have been updated after the patient was seen, as this information can be updated by other users. Medical History (Updated 11/25/24 @ 08:15 by Vladimir Palmer MD) TBI (traumatic brain injury) History of contracture of joint Hx of cerebrovascular disorder History of intracranial injury Chronic pain Seizures Depression Dementia History of stroke Psoriasis Hyperlipidemia Hypertension Surgical History History of surgery of head History of knee replacement Family History Other No significant family history Social History Smoking Status: Unknown if ever smoked alcohol intake: never substance use type: denies use current occupational status: disabled Travel in the last 8 weeks?: None Have you lived/traveled outside [place] in past 30 days?: No Contact w/someone who lives/traveled outside [place] past 30 days?: No Exposure to someone with infectious disease in past 14 days?: No Do you have a fever (greater than 100.4 F or 38 C)?: No Have you tested positive for COVID-19?: No Exposed to someone with COVID-19 in past 14 days?: No Do you have a sore throat?: No Do you have a cough?: No Do you have any weakness?: No Do you have any diarrhea?: No Are you experiencing any unusual bleeding?: No Do you have any muscle aches/pain?: No Do you have any abdominal pain?: No Are you experiencing loss of taste or smell?: No Other Medical History Have you received the Flu Vaccine for this season: No Have you received the Pneumonia Vaccine: No <Francois Finn MD - Last Filed: 11/25/24 06:58> ROS Obtained: Yes All systems reviewed & no additional complaints except as documented Physical Exam <Francois Finn MD - Last Filed: 11/25/24 06:58> General General appearance: alert and in no apparent distress Head Head exam: atraumatic and normocephalic Eye Eye exam: Present normal appearance, PERRL and EOMI ENT ENT exam: Present normal oropharynx and normal external ear exam Neck Neck exam: Present normal inspection and full ROM Chest Chest inspection: Present normal inspection and symmetric chest wall rise; Absent tenderness Respiratory Respiratory exam: Present normal lung sounds bilaterally; Absent respiratory distress Cardiovascular Cardiovascular exam: Present regular rate and normal rhythm Abdominal Exam Abdominal exam: Present soft; Absent distention, tenderness or guarding Extremities Exam Extremities exam: Present normal inspection; Absent edema or joint swelling Back Exam Back exam: Present normal inspection; Absent tenderness Neurological Exam Neurological exam: Present alert; Absent motor sensory deficit Psychiatric Psychiatric exam: Present flat affect Skin Skin exam: Present warm, dry and normal color Lymphatic Lymphatic Findings: no adenopathy Medical Decision Making <Francois Finn MD - Last Filed: 11/25/24 06:58> Medical Records Medical records reviewed: Yes I reviewed the patient's medical records. Screening: Per USPSTF and CDC recommendations, given the prevalence of disease in our region, it is our hospital?s policy to screen for HIV and viral Hepatitis for all patients aged 18 and over and those with ongoing risk factors. Josh Inquiry Pt receiving controlled substance: No Josh was queried for this patient: No Vital Signs: 11/25/24 06:34 11/25/24 07:01 11/25/24 07:31 Temperature 98.0 F Temperature Source Oral Pulse Rate 73 65 Pulse Rate [Right Radial] 70 Respiratory Rate 20 16 17 Blood Pressure 134/45 L 116/46 L Blood Pressure [Right Arm] 173/85 H Blood Pressure Mean 78 69 Blood Pressure Mean [Right Arm] 114 Blood Pressure Source [Right Arm] Automatic Cuff Blood Pressure Position [Right Arm] Supine 02 Sat by Pulse Oximetry 95 97 99 Oxygen Delivery Method Room Air 11/25/24 07:50 11/25/24 07:54 Temperature Temperature Source Pulse Rate 68 67 Pulse Rate [Right Radial] Respiratory Rate 17 18 Blood Pressure 148/84 H 132/60 Blood Pressure [Right Arm] Blood Pressure Mean 105 84 Blood Pressure Mean [Right Arm] Blood Pressure Source [Right Arm] Blood Pressure Position [Right Arm] 02 Sat by Pulse Oximetry 97 98 Oxygen Delivery Method Lab Data Lab results reviewed: Yes I reviewed the patient's lab results. Orders (Tests/Meds): ED MEDICATIONS Discontinued Medications Generic Name Dose Route Start Last Admin Trade Name Birdie PRN Reason Stop Dose Admin Acetaminophen 1,000 mg 11/25/24 06:32 11/25/24 06:42 Acetaminophen 500mg Tab PO 11/25/24 06:33 1,000 mg ONCE ONE Administration Ibuprofen 600 mg 11/25/24 06:32 11/25/24 06:42 Ibuprofen 600 Mg Tablet PO 11/25/24 06:33 600 mg ONCE ONE Administration Lidocaine 1 each 11/25/24 06:32 11/25/24 06:43 Lidocaine 5% Transdermal Patch TD 11/25/24 06:33 1 each ONCE ONE Administration ORDERS Category Date Time Status Femur XR left 2 views [XR femur LT 2V] Stat Exams 11/25/24 06:32 Completed Pelvis XR 1-2 views [XR pelvis 1-2V] Stat Exams 11/25/24 06:32 Completed HIV Combo Stat Lab 11/25/24 06:38 Ordered Hepatitis C Ab Qual. W/ RFX Stat Lab 11/25/24 06:38 Ordered Medical Decision Narrative: 59-year-old female, history of TBI and stroke, resident at [facility], presents for left leg pain. She has been seen here for this before and had CT scans recently.. History was obtained via interactive discussion with EMS. Patient was unwilling to provide any history even though the last time she was here she could talk. On arrival, patient is afebrile, hemodynamically stable, satting appropriately on room air, moving all extremities spontaneously. Full physical exam performed and significant for eczematous changes over the left leg, no obvious deformity. Differential includes but is not limited to malingering, sciatica, musculoskeletal pain. Patient was given Tylenol, ibuprofen, lidocaine patch for symptomatic management and correction of underlying abnormalities. Workup initiated including radiographs of the femur and pelvis. At this time care handed off to oncoming physician. <Vladimir Palmer MD - Last Filed: 11/25/24 08:16> Vital Signs: 11/25/24 06:34 11/25/24 07:01 11/25/24 07:31 Temperature 98.0 F Temperature Source Oral Pulse Rate 73 65 Pulse Rate [Right Radial] 70 Respiratory Rate 20 16 17 Blood Pressure 134/45 L 116/46 L Blood Pressure [Right Arm] 173/85 H Blood Pressure Mean 78 69 Blood Pressure Mean [Right Arm] 114 Blood Pressure Source [Right Arm] Automatic Cuff Blood Pressure Position [Right Arm] Supine 02 Sat by Pulse Oximetry 95 97 99 Oxygen Delivery Method Room Air 11/25/24 07:50 11/25/24 07:54 Temperature Temperature Source Pulse Rate 68 67 Pulse Rate [Right Radial] Respiratory Rate 17 18 Blood Pressure 148/84 H 132/60 Blood Pressure [Right Arm] Blood Pressure Mean 105 84 Blood Pressure Mean [Right Arm] Blood Pressure Source [Right Arm] Blood Pressure Position [Right Arm] 02 Sat by Pulse Oximetry 97 98 Oxygen Delivery Method Orders (Tests/Meds): ED MEDICATIONS Discontinued Medications Generic Name Dose Route Start Last Admin Trade Name Freq PRN Reason Stop Dose Admin Acetaminophen 1,000 mg 11/25/24 06:32 11/25/24 06:42 Acetaminophen 500mg Tab PO 11/25/24 06:33 1,000 mg ONCE ONE Administration Ibuprofen 600 mg 11/25/24 06:32 11/25/24 06:42 Ibuprofen 600 Mg Tablet PO 11/25/24 06:33 600 mg ONCE ONE Administration Lidocaine 1 each 11/25/24 06:32 11/25/24 06:43 Lidocaine 5% Transdermal Patch TD 11/25/24 06:33 1 each ONCE ONE Administration ORDERS Category Date Time Status Femur XR left 2 views [XR femur LT 2V] Stat Exams 11/25/24 06:32 Completed Pelvis XR 1-2 views [XR pelvis 1-2V] Stat Exams 11/25/24 06:32 Completed HIV Combo Stat Lab 11/25/24 06:38 Ordered Hepatitis C Ab Qual. W/ RFX Stat Lab 11/25/24 06:38 Ordered Medical Decision Narrative: 59-year-old female, history of TBI and stroke, resident at [facility], presents for left leg pain. She has been seen here for this before and had CT scans recently.. History was obtained via interactive discussion with EMS. Patient was unwilling to provide any history even though the last time she was here she could talk. On arrival, patient is afebrile, hemodynamically stable, satting appropriately on room air, moving all extremities spontaneously. Full physical exam performed and significant for eczematous changes over the left leg, no obvious deformity. Differential includes but is not limited to malingering, sciatica, musculoskeletal pain. Patient was given Tylenol, ibuprofen, lidocaine patch for symptomatic management and correction of underlying abnormalities. Workup initiated including radiographs of the femur and pelvis. At this time care handed off to oncoming physician. Vladimir Palmer: Upon assumption of care patient is hemodynamically stable. Patient is unwilling to communicate with me and points that her ears. I asked if she was having difficulty hearing or has hearing impairment at baseline and she just points that her ears. I contacted facility that she lives that patient can hear and converse just fine she is just electing not to for me. She has been seen multiple times in the emergency department over the last week. Plain films of the femur and hip on 28 reviewed by me unremarkable for acute traumatic pathology. Upon repeat evaluation 29 there was disc bulging at L4-L5 which likely explains patient's pain in her left hip. Plain films will be repeated today to make sure there is no interval change however given with CT imaging my concern for fracture is low. Patient likely has musculoskeletal pain versus sciatica. Is unclear why she chooses not to communicate but differential includes secondary gain, among others. Upon repeat evaluation patient was well-appearing, formal x-rays read as negative. Patient was ambulatory and bearing weight at bedside. When telling her that she was going back, nothing dangerous was going on she was nodding up and down to signify yes but continues to not converse with me. Patient is appropriate for discharge at this time and was given return precautions will follow-up with Dr. Chicas on an outpatient basis. Procedures <Francois Finn MD - Last Filed: 11/25/24 06:58> Risk/Benefits of Procedure(s) Were Explained: Yes Critical Care <Francois Finn MD - Last Filed: 11/25/24 06:58> Critical Care Time Critical Care Time: No
--- OUTSIDE RECORDS SUMMARY | 2024-11-25 06:44 | XMS_ITS | Clinical Summary ---
Author Organization [facility] Address [address] [place] [address] Phone Care Team Providers Care Showroom Sales Assistant Name Role Phone Unavailable Primary Care Provider [...] Active fluticasone propionate (FLONASE) 50 mcg/actuation Nasl [place], Suspension 2 Sprays by Nasal route daily. [...]
--- NOTE | 2024-11-25 06:46 | PC.NURSE ---
Pt awake alert. Unable to establish orientation Pt does answer some questions but not others. Skin pink warm and dry Psoriasis-like rash noted generalized. Speech clear. Pt appears to have not distress when not being stimulated. As soon as walk into the room pt cries and screams
[2024-11-25 07:01] VITALS: BP 134/45; PULSE 73; RESP 16; O2SAT 97
[2024-11-25 07:31] VITALS: BP 116/46; PULSE 65; RESP 17; O2SAT 99
[2024-11-25 07:50] VITALS: BP 148/84; PULSE 68; RESP 17; O2SAT 97
[2024-11-25 07:54] VITALS: BP 132/60; PULSE 67; RESP 18; O2SAT 98
--- NOTE | 2024-11-25 07:59 | PC.NURSE ---
pt calls out on the call light. Went to check on pt. pt refuses to talk to me and points down to her privates . I assisted pt to get up from bed and she starts screaming and not wanting to walk. MD at pts besides. pt is refusing to talk to MD and telling him what is wrong with her. requested we call [facility]. Alicia called [facility] and they reported that the pt is able to talk and isn't hard of hearing. [facility] reports that the pt is able to get up on her own and usually gets up and does the dishes on her own. Stevie placed socks on pt. pt demanded she was wanting to get out of here and ripped the socks off and threw them in the floor. pt walked to the wheelchair on her own. pt was assisted to the bathroom in a wheelchair where she started screaming and crying and said she didn't need to go to the bathroom. pt pushed in the wheelchair back to her room. pt got up from the wheelchair and walked to the bed on her own. notified. No new orders at this time.
[2024-11-25 08:51] VITALS: BP 147/83; PULSE 60; RESP 18; TEMP 36.8; O2SAT 97
--- NOTE | 2024-11-25 08:52 | PC.NURSE ---
Called [facility] and notified that patient is ready for discharge and turkey picker. States they will get someone up here.
== END 2024-11-25 09:36 | disposition home or self-care (01) ==
PROVIDERS: Emergency Provider Emergency Medicine
DX: M25.552 Pain in left hip (principal); F94.0 Selective mutism
CPT/HCPCS: 72170; 73552; 99284